=== PATIENT | male | born 1960 | race Caucasian/White ===

== ENCOUNTER → 2020-12-27 | Outpatient (CLI) | payer OTHER ==
--- NOTE | 2020-12-27 19:42 | CONS ---
CONSULTATION DATE OF SERVICE: 12/27/2020 This 60-year-old gentleman has been evaluated in Sleep Center for possible obstructive sleep apnea-hypopnea syndrome. HISTORY OF PRESENT ILLNESS/SLEEP-WAKE EVALUATION: Patient's usual sleep schedule on weekdays is from 11 or 12 midnight until 7 or 8 a.m. and on weekends from around 12 midnight until 7 or 9 a.m. Sometimes he has some problems with falling asleep, although no TV in the bedroom. He usually sleeps on the side position. According to his , he snores and has episodes of stopped breathing during sleep. He also wakes up with gasping for air up to 4 times per night and up to one episode of nocturia at night. Positive history of jerking movements during sleep, according to his . No history of hypnagogic hallucinations, sleep paralysis or cataplexy. [place] Sleepiness Scale is 7. He very rarely takes naps, but feel refreshed after a nap. PAST MEDICAL HISTORY: Positive for allergies. PAST SURGICAL HISTORY: None. MEDICATIONS: None. SOCIAL HISTORY: Positive for smoking many years ago; quit about 30 years ago. Alcohol consumption: None. FAMILY HISTORY: Positive for heart problems in his father. REVIEW OF SYSTEMS: No fevers. No double vision. No recent chest pain. No shortness of breath. No abdominal pain. No bleeding episodes. No blood in the urine. No seizure episodes. Awakenings from sleep. Snoring. PHYSICAL EXAMINATION: GENERAL: Pleasant gentleman without distress. VITAL SIGNS: BP 125/82, HR 81, RR 12, height 5 feet 9 inches, weight 210, BMI 31, temperature 97.4, oxygen saturation at room air 97%. HEENT: PERRLA, EOMI, evaluation of oropharynx showed tongue protrudes midline. Extremely low position of soft palate; Mallampati IV. NECK: Supple, no JVD. Thyroid is not palpable. Neck is wide, measuring 17-1/4 inches in circumference. LUNGS: Clear to percussion and to auscultation. Good air exchange. No wheezing or rhonchi. HEART: S1, S2 regular. No murmurs, gallops, or rubs. ABDOMEN: Soft and nontender. Bowel sounds are present. No organomegaly appreciated. EXTREMITIES: No clubbing or cyanosis. MEDICAL INFORMATION SPECIALIST: Awake, alert, and oriented X3. Cranial nerves 2 to 7 intact. There is no fasciculation or atrophy. noted. No focal deficits observed. IMPRESSION: 1. Snoring, witnessed episodes of stopped breathing during sleep, awakenings from sleep gasping for air, extremely low position of soft palate, Mallampati 4, wide neck, 17-1/4 inches in circumference; obstructive sleep apnea-hypopnea syndrome. 2. Objective movements during sleep; possibly periodic limb movements. 3. Allergies. 4. Obesity in mild range; BMI 31. PLAN: 1. Polysomnography for evaluation of patient's breathing during sleep. 2. CPAP/BiPAP titration if sleep study confirms obstructive sleep apnea-hypopnea syndrome. 3. Preferable position during sleep on the side. 4. No driving if patient feels any sleepiness. 5. I will see patient for follow up visit to explain results of testing and following plan. Thank you very much for referring this patient for consultation. Sincerely, Anoop Kaba MD, PhD, FAASM Diplomat of [place] [employer] Sleep Medicine Board of [place] [employer] Copy Coordinator of [facility] [place] MMODL / GENN: [id number] /
== END ==
LOC: SLEEP 14:54
PROVIDERS: ATTEND Internal Medicine
DX: G47.33 Obstructive sleep apnea (adult) (pediatric) (principal); E66.9 Obesity, unspecified; Z68.31 Body mass index [BMI] 31.0-31.9, adult; T78.40XA Allergy, unspecified, initial encounter; Z87.891 Personal history of nicotine dependence
CPT/HCPCS: 99211

== ENCOUNTER → 2021-01-01 | Outpatient (CLI) | payer OTHER ==
--- NOTE | 2021-01-02 10:45 | ECHOF ---
Referral Reason:DYSPNEA MEASUREMENTS -------- HEIGHT: 175.3 cm WEIGHT: 93.0 kg BP: RVIDd: 3.3 cm (< 3.3) IVSd: 1.2 cm (0.6 - 1.1) LVIDd: 4.6 cm (3.9 - 5.3) LVPWd: 1.0 cm (0.6 - 1.1) IVSs: 1.5 cm LVIDs: 3.3 cm LVPWs: 1.5 cm LA Diam: 3.8 cm (2.7 - 3.8) LAESV Index (A-L): 20.36 ml/m Ao Diam: 3.5 cm (2.0 - 3.7) AV Cusp: 2.5 cm (1.5 - 2.6) MV EXCURSION: 16.312 mm (> 18.000) MV EF SLOPE: 55 mm/s (70 - 150) EPSS: 0.6 cm MV E Luis Miguel: 0.49 m/s MV DecT: 197 ms MV A Luis Miguel: 0.58 m/s MV E/A Ratio: 0.85 RAP: 5.00 mmHg RVSP: 17.01 mmHg FINDINGS -------- Sinus rhythm. This was a technically adequate study. The left ventricular size is normal. There is mild concentric left ventricular hypertrophy. Overa ll left ventricular systolic function is normal with, an EF between 55 - 60 %. The diastolic fillin g pattern is normal for the age of the patient 7.41. The right ventricle is normal in size. Normal LA size by volume 22+/-6 ml/m2. The right atrial size is normal. The aortic valve is trileaflet, and appears structurally normal. No aortic stenosis or regurgitation. The mitral valve is normal. Mild mitral regurgitation is present. The tricuspid valve appears structurally normal. Mild tricuspid regurgitation present. Right vent ricular systolic pressure is normal at < 35 mmHg. Trace/mild (physiologic) pulmonic regurgitation. The aortic root size is normal. There is no pericardial effusion. CONCLUSIONS -------- 1. There is mild concentric left ventricular hypertrophy. 2. Overall left ventricular systolic function is normal with, an EF between 55 - 60 %. 3. Normal LA size by volume 22+/-6 ml/m2. 4. The aortic valve is trileaflet, and appears structurally normal. No aortic stenosis or regurgitati on. 5. Mild mitral regurgitation is present. 6. Mild tricuspid regurgitation present. 7. Trace/mild (physiologic) pulmonic regurgitation. 8. There is no pericardial effusion. BINDER CUTTER: Bharati Dunne RDCS
== END ==
LOC: RADECHMAIN 13:16
PROVIDERS: ATTEND Family Medicine
DX: I08.8 Other rheumatic multiple valve diseases (principal)
CPT/HCPCS: 93306

== ENCOUNTER → 2021-01-01 | Outpatient (CLI) | payer OTHER ==
--- NOTE | 2021-01-01 15:40 | XR ---
EXAMINATION TYPE: XR chest 2V DATE OF EXAM: 01/01/2021 COMPARISON: NONE HISTORY: Shortness of breath TECHNIQUE: Frontal and lateral views of the chest are obtained. FINDINGS: There is no focal air space opacity, pleural effusion, or pneumothorax seen. The cardiac silhouette size is within normal limits. The osseous structures are intact. IMPRESSION: No acute cardiopulmonary process.
== END | disposition home or self-care (01) ==
LOC: RADXRMAIN 13:42
PROVIDERS: ATTEND Family Medicine
DX: R06.02 Shortness of breath (principal)
CPT/HCPCS: 71046

== ENCOUNTER → 2021-07-26 | Outpatient (CLI) | payer OTHER ==
--- NOTE | 2021-07-26 13:07 | SFUN ---
SLEEP CENTER FOLLOW UP NOTE DATE OF SERVICE: 07/26/2021 61-year-old gentleman has been followed in Sleep Center for treatment of obstructive and central sleep apnea-hypopnea syndrome. Recently the patient had a polysomnogram and CPAP/BiPAP titration. I discussed results of sleep studies with patient in detail. Today is his first visit after he was started on treatment with CPAP. With CPAP, he sleeps better and feels better in the morning after awakenings, but he still has some awakenings from sleep. I checked his CPAP unit, it is in automatic regimen. Range of the pressure 7-15, usage is 100% of nights and 60% of nights more than 4 hours. Average pressure 13.1 cm of water. Average apnea-hypopnea index 15.9, which includes 8.0 central events. Average usage of CPAP 5 hours per night. [place] Sleepiness Scale today 6. MEDICATIONS: None. PHYSICAL EXAMINATION: GENERAL: Patient in no distress. BP 136/89, HR 73, RR 16, weight 221.8, temperature 97.2, oxygen saturation at room air 99%. Oropharynx: Extremely low position of soft palate, Mallampati 4. NECK: Supple, no JVD. Thyroid is not palpable. LUNGS: Clear to percussion and to auscultation. Good air exchange. No wheezing or rhonchi. HEART: S1, S2 regular. No murmurs, gallops, or rubs. ABDOMEN: Soft and nontender. Bowel sounds are present. No organomegaly appreciated. EXTREMITIES: No clubbing or cyanosis. AUDITOR/QUALITY: Awake, alert, and oriented X3. Cranial nerves 2 to 7 intact. There is no fasciculation or atrophy. noted. No focal deficits observed. IMPRESSION: 1. Moderate mostly central sleep apnea-hypopnea syndrome with apnea-hypopnea index 25.3. The patient demonstrated borderline compliance with CPAP, respiration improved but not normalized. Presently it is 15.9 times per hour and that includes 8.0 central events per hour. 2. Allergy. 3. Obesity. 4. Severe periodic limb movement 73.3 per hour with 22 microarousals per hour. PLAN: 1. Titration with BiPAP ST mode unit, if necessary auto Servo ventilator. 2. Please check iron profile, including ferritin level. Low level of iron may increase risk for periodic limb movements. 3. Start patient on Mirapex 0.125 mg 1-2 tablets at bedtime to prevent periodic limb movements. 4. No driving if feeling sleepiness. Thank you very much for allowing me to participate in management of your patient. Sincerely, Anoop Kaba MD, PhD, FAASM Diplomat of [place] [employer] Sleep Medicine Board of [place] [employer] Glass Embosser of [facility] [place] MMODL / GENN: [id number] /
== END ==
LOC: SLEEP 11:00
PROVIDERS: ATTEND Internal Medicine
DX: G47.31 Primary central sleep apnea (principal); T78.40XA Allergy, unspecified, initial encounter; E66.9 Obesity, unspecified; G47.61 Periodic limb movement disorder; Z99.89 Dependence on other enabling machines and devices

== ENCOUNTER → 2022-02-07 | Outpatient (CLI) | payer OTHER ==
--- NOTE | 2022-02-07 14:53 | P.PN ---
Subjective DATE: 02/07/2022 FOLLOW UP VISIT. Patient with obstructive sleep apnea hypopnea syndrome and periodic limb movements return to sleep center for follow-up visit. Information from previous visit have been reviewed. Patient is using his ASV equipment most of the nights of the nasal pillow mask and full face mask. He has claustrophobic reaction on full face mask, but if she is able to use full face mask she sleeps better and he is numbers from his machine is better to. [place] sleepiness scale is 7, which is normal. Patient sleeps better with treatment for periodic limb movements. I checked information from ASV unit. ASV unit pressure expiratory pressure in the range between 7 and 10, pressure support in the range from 6-12 cm H2O. Usage is 73 % of nights, average 5.8 hours per night. Leak is 46.1 l/m, which is in increased range. Apnea Hypopnea Index is increased to 9.4, most probably secondary to significant leak. With usage of full face mask when leak is less apnea-hypopnea index is also less according to patient. MEDICATIONS: None During physical exam: GENERAL: A pleasant patient without any distress. VITAL SIGNS: BP 140/86, HR 80, RR 16, weight 215, temperature 98.3, oxygen saturation at room air 98 % . HEENT: PERRLA, EOMI.low position of soft palate, Mallapati 4 . NECK: Supple. No JVD. LUNGS: Clear to percussion and to auscultation. Good air exchange. No wheezing or rhonchi. HEART: S1, S2 regular. ABDOMEN: Soft and nontender. Slightly obese EXTREMITIES: No clubbing or cyanosis. JAVA TECH LEAD: Awake, alert, and oriented x3. No focal deficit. Impressions: 1. Central and obstructive sleep apnea-hypopnea syndrome. Patient demonstrated borderline compliance with treatment, benefiting from treatment. Patient has some claustrophobic reaction on full face mask, but with full face mask respiration improved better then with the nasal pillows. Significant leak with nasal pillows. 2. Obesity body mass and is 31.7. 3. ALLERGY. 4. Severe periodic limb movements. Patient feels improvements on treatment with Mirapex. Plan: 1. Continue using ASV equipment every night for the whole night. Prescription for chinstrap. 2. I teach patient how to proceed with desensitization procedure for usage of full face mask to avoid claustrophobic reaction. 3. ASV unit should stay lower then position of the head. 4. Advised patient to remove all remaining water from humidifier canister daily and make it dry after each usage. Refill canister with fresh distilled water before each usage. 5. Sleep hygiene with regular time in bed for at least 8 hours. 6. Precautions related to driving. No driving if feel any sleepiness. 7. I will maintain prescription for ASV supplies including mask, tube, filters. 8. Follow up visit in 6 months or earlier if patient has any problems. 9. Watching and losing weight. 10. Continue Mirapex 0.125 mg 1-2 tablets at bedtime. Thank you very much for allowing me to participate in the management of your patient. Anoop Kaba MD, PhD, FAASM. Diplomat of [place] [employer], Sleep Medicine Board by [place] [employer] Brewer Helper of [facility] [place]
== END ==
LOC: SLEEP 14:14
PROVIDERS: ATTEND Internal Medicine
DX: G47.33 Obstructive sleep apnea (adult) (pediatric) (principal); E66.9 Obesity, unspecified; Z68.31 Body mass index [BMI] 31.0-31.9, adult; G47.61 Periodic limb movement disorder
CPT/HCPCS: 99212

== ENCOUNTER 2022-10-02 10:50 | Inpatient (IN) | payer OTHER ==
[2022-10-02] MEDS ORDERED: IV FLUID CONTINUATION 400 ML IV ONE (11:20)
[2022-10-02] MEDS ORDERED: NITROGLYCERIN SL TABS 0.4 MG TAB SUBLINGUAL ONE ×2 (12:38→12:40)
[2022-10-02] MEDS ORDERED: NITROGLYCERIN D5W PMX IV ONE (16:14)
[2022-10-02] MEDS ORDERED: [UNRECOGNIZED DRUG - OTHER] IV ONE (16:14)
[2022-10-02] MEDS ORDERED: ONDANSETRON 4 MG/2 ML VIAL ONE (16:55)
[2022-10-02] MEDS ORDERED: ONDANSETRON 4 MG/2 ML VIAL IVP ONE (17:00)
[2022-10-02] MEDS ORDERED: LIDOCAINE 1% INJ 10MG/ML (5 ML VIAL-PF) SQ ONE (18:43)
[2022-10-02] MEDS ORDERED: MIDAZOLAM 2 MG/2 ML VIAL IV ONE (18:46)
[2022-10-02] MEDS ORDERED: LIDOCAINE 1% INJ 10MG/ML (20 ML MDV) SQ ONE (18:50)
[2022-10-02] MEDS ORDERED: HEPARIN SODIUM 1,000 UN/ML (10ML VL) IV PRN (18:55)
[2022-10-02] MEDS ORDERED: HEPARIN SODIUM 1,000 UN/ML (10ML VL) ONE (18:58)
[2022-10-02] MEDS ORDERED: HEPARIN SOD,PORK IN 0.45% NACL 25,000 UNIT in 0.45% NACL 1 250ML.BAG IV SCH (19:00)
[2022-10-02] MEDS ORDERED: HEPARIN SODIUM 1,000 UN/ML (10ML VL) IV ONE (19:01)
[2022-10-02] MEDS ORDERED: PRASUGREL 10 MG TAB ONE (19:13)
[2022-10-02] MEDS ORDERED: PRASUGREL 10 MG TAB PO ONE (19:15)
[2022-10-02] MEDS ORDERED: IOPAMIDOL-370 100ML BTL INJ ONE (19:21)
[2022-10-02] MEDS ORDERED: RX INFO: IV CONTRAST WAS GIVEN 1 EACH MISC MISCELLANE PRN (19:23)
[2022-10-02] MEDS ORDERED: ATROPINE SULFATE 0.1 MG/ML 10ML SYRINGE IV PRN (19:23)
[2022-10-02] MEDS ORDERED: MAG HYDROX/AL HYDROX/SIMETH 30 ML CUP PO PRN (19:23)
[2022-10-02] MEDS ORDERED: ZOLPIDEM 5 MG TAB PO PRN (19:23)
[2022-10-02] MEDS ORDERED: NITROGLYCERIN SL TABS 0.4 MG TAB SUBLINGUAL PRN (19:23)
[2022-10-02] MEDS ORDERED: SODIUM CHLORIDE 0.9% 1,000 ML in EMPTY BAG 1 BAG IV SCH (19:30)
[2022-10-02] MEDS ORDERED: ATORVASTATIN 80 MG TAB PO SCH (21:00)
--- NOTE | 2022-10-02 21:24 | P.PCN ---
Date of Procedure: 10/02/22 Operative Findings: Percutaneous coronary intervention Performing physician Elfego Ortiz MD Procedure performed 1. Successful stenting of the proximal LAD using a 4.5 x 15 mm Xience DANIEL with an excellent angiographic results and with adjunctive use of lithotripsy balloon and intravascular imaging 2. Right radial artery angiogram 3. Ultrasound-guided access of the right common femoral artery and right common femoral artery angiogram Indication This is a 8-year-old gentleman with hypertension and dyslipidemia and significant family history of cardiovascular disease who presented to [facility] with chest discomfort concerning for angina. In the light of the heart catheterization was advised Approach Right common femoral artery Complications None Level of sedation Moderate with sedation at length of 35 minutes Procedure description After obtaining an informed consent the patient was brought to the cardiac Grape Picker. Initially I exchanged my right radial sheath using a 018 wire into a new right radial sheath. Attempting a bleeding this sheath was unsuccessful. I did a right radial angiogram which showed what seems to be thrombus just proximal to the sheath. At that point the sheath was pulled out and a place a TR band. For that reason I decided to abort the right radial procedure and go from the groin. That point the right common femoral artery was cannulated using micropuncture technique, the micropuncture wire passed easily then I placed a 6 Uzbek sheath. After that I did start anticoagulation using heparin with continuous ACT monitoring. Subsequently I did engage the left main using JL4 guiding catheter. I did wire the LAD using a run through wire. After that intravascular ultrasound was performed and showed that the RCA by the bifurcation of the diagonal appeared to be calcified with an arch of calcium about to 70. At that point I decided to go ahead and do lithotripsy balloon. The diameter of the LAD was about 4.5 mm. I did inflate a 4.0 x 12 mm lithotripsy balloon or the balloon was positioned under fluoroscopy guidance and inflated under its nominal pressure. Subsequently I deployed 4.5 x 15 mm stent for the stent was positioned under fluoroscopy guidance and deployed under fluoroscopy guidance. Following angiogram showed good angiographic results and subsequent intravascular ultrasound imaging showed that the stent was well expanded. The procedure was completed was no complication. By the end I did selective right c ommon femoral artery angiogram. Postprocedure management Dual antiplatelet therapy Aggressive cholesterol control Risk factors modification Follow-up with the patient
[2022-10-02] MEDS ORDERED: METOCLOPRAMIDE 5 MG/ML 2 ML VIAL IVP STA (22:14)
[2022-10-02] MEDS: METOPROLOL TARTRATE 25 MG TAB PO SCH (22:31)
--- NOTE | 2022-10-03 00:48 | P.HPIM ---
History of Present Illness H&P Date: 10/02/22 The patient is a 62-year-old male with a PMH of hypertension, hyperlipidemia, and obstructive sleep apnea who initially presented to [facility] earlier today with complaints of chest pain and shortness of breath. The patient reported that he has been experiencing exertional dyspnea with diaphoresis and nausea over the past 2-3 weeks. He also reported occasional exertional chest tightness, 2-3 out of 10 on maximal intensity, nonradiating, substernal, alleviated by rest. He denied experiencing dizziness or palpitations. Denied fever, chills, cough. The patient had undergone EKG which revealed dynamic changes. He was transferred to [facility] where he taken to the cardiac label folder where cardiac catheterization was performed with stenting of the proximal LAD. At time of interview, the patient reports that he continues to have mild substernal chest tightness, nonradiating at a 1 out of 10. He also reported ongoing nausea, now improved after having received Reglan. Laboratory evaluation from [facility] was reviewed with sodium 137, potassium 3.1, CO2 17, BUN 10, creatinine 1.2, glucose 184, AST 47, ALT 76, lactic acid 6.8, WBC count 4.9, hemoglobin 17.5, platelets 278, troponin I 12 (within normal limits), proBNP 108, and INR 1.08. ED documentation reviewed and case discussed with ED provider. Review of systems: Pertinent positives and negatives as discussed in HPI, a complete review of systems was performed and all other systems are negative. Physical examination: Vital signs reviewed General: non toxic, no distress, appears at stated age, obese Derm: no unusual rashes/lesions, warm Head: atraumatic, normocephalic, symmetric Eyes: EOMI, no lid lag, anicteric sclera, pupils equal round reactive to light ENT: Nose and ears atraumatic Neck: No cervical lymphadenopathy, trachea midline, supple Mouth: no lip lesion, mucus membranes moist Cardiovascular: S1S2 reg, no murmur, positive dorsalis pedis pulse bilateral, no edema Lungs: CTA bilateral, no rhonchi, no rales, no accessory muscle use Abdominal: soft, nontender to palpation, no guarding, right femoral pressing in place without obvious bruising or bleeding Ext: muscle strength 5 out of 5 in all 4 extremities grossly, no gross muscle atrophy, no contractures, right radial sheath in place Neuro: CN II-XI grossly intact, no gross focal neuro deficits Psych: Alert, oriented, appropriate affect Assessment: ST elevation IL status post stenting to the LAD Lactic acidosis Hypokalemia Chronic conditions: Hypertension, hyperlipidemia Imaging: None performed Data Review: Laboratory evaluation from [facility] was reviewed with sodium 137, potassium 3.1, CO2 17, BUN 10, creatinine 1.2, glucose 184, AST 47, ALT 76, lactic acid 6.8, WBC count 4.9, hemoglobin 17.5, platelets 278, troponin I 12 (within normal limits), proBNP 108, and INR 1.08. Plan: Cardiology following Continue with aspirin and Effient Continue with Lopressor 25 mg by mouth twice a day and Lipitor 80 mg by mouth daily at bedtime Cardiac monitoring Repeat lactic acid and monitor for resolution Repeat potassium levels Continue remaining home medications DVT prophylaxis: Heparin subq The patient is admitted with an anticipated greater than 2 midnight stay for evaluation of STEMI CODE STATUS: Full Code Discussed with: Patient Anticipated discharge place: Home Past Medical History Past Medical History: No Reported History History of Any Multi-Drug Resistant Organisms: None Reported Past Surgical History: No Surgical Hx Reported Smoking Status: Never smoker - Past Family History Father Family Medical History: Chest Pain / Angina Medications and Allergies Home Medications Medication Instructions Recorded Confirmed Type Cetirizine HCl [Zyrtec] 10 mg PO HS 10/02/22 10/02/22 History Pramipexole [Mirapex] 0.25 mg PO HS 10/02/22 10/02/22 History Allergies Allergy/AdvReac Type Severity Reaction Status Date / Time No Known Allergies Allergy Verified 10/02/22 17:26 Physical Exam Vitals: Vital Signs Temp Pulse Pulse Resp BP Pulse Ox 10/02/22 23:08 98.4 F 70 18 141/94 96 10/02/22 22:08 60 18 137/86 97 10/02/22 20:38 55 L 20 155/86 98 10/02/22 20:08 98.0 F 20 151/89 97 10/02/22 17:52 98.3 F 68 22 146/92 98 10/02/22 17:00 75 16 156/83 97 10/02/22 16:00 78 16 150/83 97 10/02/22 15:00 73 16 147/95 95 10/02/22 14:00 67 16 144/82 98 10/02/22 13:00 72 16 151/88 96 10/02/22 12:30 65 16 161/103 97 10/02/22 12:00 73 16 140/92 98 10/02/22 11:30 98.8 F 70 16 142/90 98 Intake and Output 10/02/22 10/02/22 10/03/22 14:59 22:59 06:59 Intake Total 170 Balance 170 Intake: IV 170 Other: # Voids 1 Weight 92.533 kg 92.533 kg Thrombosis Risk Factor Assmnt - Choose All That Apply Any of the Below Risk Factors Present?: Yes Each Factor Represents 1 point: Age 41-60 years Other Risk Factors: No Thrombosis Risk Factor Assessment Total Risk Factor Score: 1 Thrombosis Risk Factor Assessment Level: Low Risk
[2022-10-03 01:50] LABS: African American GFR (CKD) >90 (>60 ml/min/1.73 sqM); Anion Gap 11 mmol/L; Blood Urea Nitrogen 9 mg/dL (9-20); Calcium 8.2 mg/dL (8.4-10.2); Carbon Dioxide 21 mmol/L (22-30); Chloride 103 mmol/L (98-107); Glucose 120 mg/dL (74-99); Non-African American GFR(CKD) >90 (>60 ml/min/1.73 sqM); Potassium 3.3 mmol/L (3.5-5.1); Sodium 135 mmol/L (137-145)
[2022-10-03] MEDS ORDERED: Potassium Replacement Protocol 1 EACH MISC MISCELLANE PRN (02:21)
[2022-10-03] MEDS: POTASSIUM CHLORIDE ER 20 MEQ TAB.ER PO SCH (02:30)
[2022-10-03] MEDS ORDERED: POTASSIUM CHLORIDE ER 20 MEQ TAB.ER PO STA (08:31)
[2022-10-03] MEDS ORDERED: ASPIRIN 81 MG PO SCH (09:00)
[2022-10-03] MEDS ORDERED: PRASUGREL 10 MG TAB PO SCH (09:00)
[2022-10-03] MEDS ORDERED: LOSARTAN 50 MG TAB PO SCH (09:00)
[2022-10-03] MEDS: METOPROLOL TARTRATE 25 MG TAB PO SCH (09:07)
[2022-10-03] MEDS ORDERED: ONDANSETRON 4 MG/2 ML VIAL IVP PRN (09:28)
--- NOTE | 2022-10-03 10:38 | P.PN ---
Subjective Progress Note Date: 10/03/22 History of present illness: This is a 62 year old male with past medical history of hypertension, dyslipid emia and family history of cardiovascular disease. He presented to [facility] with chest discomfort concerning for angina. Cardiac catheterization was performed and he subsequently underwent stenting of the proximal LAD. Patient is to have a staged stenting of the circumflex and RCA at a later time. Patient denies having any chest pain or shortness of breath at this time. Heart rate is in the 60s, potassium is 3 and was replaced. He states his abdomen is a little upset but no nausea this morning. Physical examination: Gen: This is a 62-year-old male resting in bed and appears to be comfortable. No acute distress. VS: reviewed HEENT: Head is atraumatic, normocephalic. Pupils equal, round. Sclerae is anicteric. NECK: Supple. No JVD. . LUNGS: Clear to auscultation. No wheezes or rhonchi. No intercostal retractions. HEART: Regular rate and rhythm. No murmur. ABDOMEN: Soft No tenderness. EXTREMITIES: No pedal edema. No calf tenderness. NEUROLOGICAL: Patient is awake, alert and oriented x3. Assessment: Unstable angina Coronary artery disease status post stent of the LAD Hypertension Dyslipidemia Plan: Patient is cleared for discharge from cardiology and prescriptions have been sent for his new medications Patient will have follow-up with Dr. Ortiz in the office in one week. Plan is for stage stenting of the circumflex and RCA at a later time. Nurse practitioner note has been reviewed, I agree with documented findings and plan of care. Patient was seen and examined. Objective - Vital Signs Vital signs: Vital Signs Temp 98.9 F 10/03/22 00:00 Pulse 68 10/03/22 04:00 Resp 20 10/03/22 04:00 BP 140/90 10/03/22 04:00 Pulse Ox 97 10/03/22 08:28 FiO2 Intake & Output 10/02/22 10/03/22 10/03/22 18:59 06:59 18:59 Intake Total 170 1230 180 Output Total 300 Balance 170 930 180 Weight 92.533 kg 95 kg Intake: IV 170 Intake, IV Titration 750 Amount Sodium Chloride 0.9% 1, 750 000 ml In Empty Bag 1 bag @ 75 mls/hr IV .[id number] HAYLIE Rx#:[id number] Oral 480 180 Output: Urine 300 Other: Voiding Method Urinal # Voids 1 - Labs CBC & Chem 7: 10/03/22 00:59 Labs: Abnormal Lab Results - Last 24 Hours (Table) 10/03/22 Range/Units 00:59 Sodium 135 L (137-145) mmol/L Potassium 3.3 L (3.5-5.1) mmol/L Carbon Dioxide 21 L (22-30) mmol/L Glucose 120 H (74-99) mg/dL Calcium 8.2 L (8.4-10.2) mg/dL
--- NOTE | 2022-10-03 11:44 | P.DS ---
Providers Date of admission: 10/02/22 11:28 Expected date of discharge: 10/03/22 Attending physician: Doreen Vanegas DO Consults: 10/02/22 19:23 Consult Physician Routine Consulting Provider: [facility] Consult Reason/Comments: Post Interventional Patient Do you want consulting provider notified?: Already Contacted Primary care physician: Zak Carter MD Hospital Course: Discharge Diagnosis: Unstable angina Coronary artery disease status post LAD stent Hypertension Dyslipidemia Hospital Course: 62-year-old male with a PMH of hypertension, hyperlipidemia, and obstructive sleep apnea who initially presented to [facility] earlier today with complaints of chest pain and shortness of breath. The patient reported that he has been experiencing exertional dyspnea with diaphoresis and nausea over the past 2-3 weeks. He also reported occasional exertional chest tightness, 2-3 out of 10 on maximal intensity, nonradiating, substernal, alleviated by rest. He denied experiencing dizziness or palpitations. Denied fever, chills, cough. The patient had undergone EKG which revealed dynamic changes. He was transferred to [facility] where he taken to the cardiac lab director where cardiac catheterization was performed with stenting of the proximal LAD. Laboratory evaluation from [facility] was reviewed with sodium 137, potassium 3.1, CO2 17, BUN 10, creatinine 1.2, glucose 184, AST 47, ALT 76, lactic acid 6.8, WBC count 4.9, hemoglobin 17.5, platelets 278, troponin I 12 (within normal limits), proBNP 108, and INR 1.08. Patient is discharged home with follow-up with cardiology in 1 week, plan for staged PCI of left circumflex and RCA later time. Chest pain-free at the time of discharge. Patient seen and examined at bedside. Vital signs reviewed and stable. General: nontoxic, no distress, appears at stated age Derm: warm, dry Head: atraumatic, normocephalic, symmetric Eyes: EOMI, no lid lag, anicteric sclera Mouth: no lip lesion, mucus membranes moist Cardiovascular: S1S2 reg, no murmur Lungs: CTA bilateral, no rhonchi, no rales , no accessory muscle use Abdominal: soft, nontender to palpation, no guarding, no appreciable organomegaly Ext: no gross muscle atrophy, no edema, no contractures Neuro: CN II-XI grossly intact, no focal neuro deficits Psych: Alert, oriented, appropriate affect A total of 33 minutes of time were spent preparing this complex discharge summary. Patient was discharged on 10/03/22 at 11:40. Patient Condition at Discharge: Stable Plan - Discharge Summary Discharge Rx Participant: No New Discharge Prescriptions: New Losartan [Cozaar] 50 mg PO DAILY #90 tab Prasugrel [Effient] 10 mg PO DAILY #90 tab Nitroglycerin Sl Tabs [Nitrostat] 0.4 mg SUBLINGUAL Q5M PRN #25 tab PRN Reason: Chest Pain Aspirin 81 mg PO DAILY tab Atorvastatin [Lipitor] 80 mg PO HS #90 tab Metoprolol Tartrate [Lopressor] 25 mg PO BID #180 tab Continue Pramipexole [Mirapex] 0.25 mg PO HS Cetirizine HCl [Zyrtec] 10 mg PO HS Discharge Medication List Cetirizine HCl [Zyrtec] 10 mg PO HS 10/02/22 [History] Pramipexole [Mirapex] 0.25 mg PO HS 10/02/22 [History] Aspirin 81 mg PO DAILY tab 10/03/22 [Rx] Atorvastatin [Lipitor] 80 mg PO HS #90 tab 10/03/22 [Rx] Losartan [Cozaar] 50 mg PO DAILY #90 tab 10/03/22 [Rx] Metoprolol Tartrate [Lopressor] 25 mg PO BID #180 tab 10/03/22 [Rx] Nitroglycerin Sl Tabs [Nitrostat] 0.4 mg SUBLINGUAL Q5M PRN #25 tab 10/03/22 [Rx] Prasugrel [Effient] 10 mg PO DAILY #90 tab 10/03/22 [Rx] Follow up Appointment(s)/Referral(s): Elfego Ortiz MD [STAFF PHYSICIAN] - 1 Week (THE OFFICE WILL CALL YOU WITH AN APPOINTMENT DATE AND TIME) Patient Instructions/Handouts: Moderate Sedation (GEN), After Radial Heart Catheterization (GEN) Activity/Diet/Wound Care/Special Instructions: *NO LIFTING, PUSHING, OR PULLING ANYTHING OVER 5 POUNDS FOR 5 DAYS *NO DRIVING FOR 3 DAYS *YOU CAN REMOVE YOUR DRESSING TOMORROW AND SHOWER AT THAT TIME BUT DO NOT SUBMERSE YOUR PUNCTURE SITE IN WATER FOR A FEW DAYS TO PREVENT INFECTION - SO NO TUB BATHS, POOLS, HOT TUBS, DISHES...ETC *ANY SIGNS OF BLEEDING (HARDNESS, SWELLING, OR EXCESSIVE BRUISING) HOLD DIRECT PRESSURE ON YOUR PUNCTURE SITE AND COME TO THE NEAREST EMERGENCY ROOM TO GET YOUR PUNCTURE SITE LOOKED AT - DO NOT DRIVE YOURSELF! EITHER CALL EMS OR HAVE SOMEONE DRIVE YOU! Discharge Disposition: HOME SELF-CARE
[2022-10-03 12:09] VITALS: BP 170/99; PULSE 65; RESP 18; TEMP 97.7
[2022-10-03 12:19] VITALS: BMI 30.9
--- NOTE | 2022-10-03 16:11 | CA ---
Transthoracic Echo Report Name: Lenard Levine Age: 62 Gender: M : 1960 Exam Date: 10/03/2022 09:19 Exam Location: [facility] Ht (in): 69 Wt (lb): 209 Ordering Physician: Parminder Ayon MD Attending/Referring Phys: Repair Technician Marisol Solano RDCS Procedure CPT: Indications: CO Cardiac Hx: Hx of stent Technical Quality: Fair Contrast 1: Total Dose (mL): Contrast 2: Total Dose (mL): MEASUREMENTS (Male / Female) Normal Values 2D ECHO LV Diastolic Diameter PLAX 4.8 cm 4.2 - 5.9 / 3.9 - 5.3 cm LV Systolic Diameter PLAX 3.6 cm IVS Diastolic Thickness 1.5 cm 0.6 - 1.0 / 0.6 - 0.9 cm LVPW Diastolic Thickness 1.2 cm 0.6 - 1.0 / 0.6 - 0.9 cm LV Relative Wall Thickness 0.6 RV Internal Dim ED PLAX 3.2 cm LA Systolic Diameter LX 4.0 cm 3.0 - 4.0 / 2.7 - 3.8 cm LV Diastolic Volume MOD 4C 140.9 cm??? LV Systolic Volume MOD 4C 58.0 cm??? LV Ejection Fraction MOD 4C 58.8 % LV Cardiac Index MOD 4C 2438.9 cm???/min???m??? LV Diastolic Length 4C 9.3 cm LV Systolic Length 4C 8.0 cm LV Diastolic Volume MOD 2C 140.9 cm??? LV Systolic Volume MOD 2C 58.0 cm??? LV Ejection Fraction MOD 2C 58.9 % LV Cardiac Index MOD 2C 2440.9 cm???/min???m??? LV Diastolic Length 2C 9.1 cm LV Systolic Length 2C 7.1 cm LA Volume 45.6 cm??? 18 - 58 / 22 - 52 cm??? M-MODE Aortic Root Diameter MM 3.3 cm AV Cusp Separation MM 2.4 cm DOPPLER AV Peak Velocity 143.3 cm/s AV Peak Gradient 8.2 mmHg MV Area PHT 4.8 cm??? Mitral E Point Velocity 87.7 cm/s Mitral A Point Velocity 76.3 cm/s Mitral E to A Ratio 1.1 MV Deceleration Time 157.9 ms MV E' Velocity 9.4 cm/s Mitral E to MV E' Ratio 9.3 FINDINGS Left Ventricle Left ventricular ejection fraction is estimated at 55-60 %. Left ventricular cavity size normal. Moderately increased septal wall thickness. Right Ventricle Normal right ventricular size and function. Unable to estimate the right ventricular systolic pressure. Right Atrium Normal right atrial size. Left Atrium Normal left atrial size. Mitral Valve Mitral valve thickened. Mild mitral annular calcification. Mild mitral regurgitation. Aortic Valve Trileaflet aortic valve. No aortic valve stenosis or regurgitation. Tricuspid Valve Structurally normal tricuspid valve. No tricuspid regurgitation. Pulmonic Valve Structurally normal pulmonic valve. Mild pulmonic regurgitation. Pericardium Normal pericardium. No pericardial effusion. Aorta Normal size aortic root and proximal ascending aorta. CONCLUSIONS Left ventricular ejection fraction 55-60% Mild mitral regurgitation Mild mitral calcification No pericardial effusion Previewed by: Dr. Negrito Clark DO (Electronically Signed) Final Date: 03 October 2022 16:10
== END 2022-10-03 14:57 | disposition home or self-care (01) | DRG 175 ==
LOC: 3SCARD 11:28
PROVIDERS: ADMIT Internal Medicine; ATTEND Internal Medicine
PROC: 02F03ZZ Fragmentation in Coronary Artery, One Artery, Percutaneous Approach (ICD-10-PCS; principal; 2022-10-02 12:30)
PROC: 027034Z Dilation of Coronary Artery, One Artery with Drug-eluting Intraluminal Device, Percutaneous Approach (ICD-10-PCS; principal; 2022-10-02 12:30)
PROC: B41F1ZZ Fluoroscopy of Right Lower Extremity Arteries using Low Osmolar Contrast (ICD-10-PCS; principal; 2022-10-02 12:30)
PROC: B31H1ZZ Fluoroscopy of Right Upper Extremity Arteries using Low Osmolar Contrast (ICD-10-PCS; principal; 2022-10-02 12:30)
PROC: B240ZZ3 Ultrasonography of Single Coronary Artery, Intravascular (ICD-10-PCS; principal; 2022-10-02 12:30)
DX: I25.10 Atherosclerotic heart disease of native coronary artery without angina pectoris (principal); E87.20 Acidosis, unspecified; I25.110 Atherosclerotic heart disease of native coronary artery with unstable angina pectoris; I10 Essential (primary) hypertension; G25.81 Restless legs syndrome; E78.5 Hyperlipidemia, unspecified; Z28.310 Unvaccinated for COVID-19; I25.84 Coronary atherosclerosis due to calcified coronary lesion; G47.33 Obstructive sleep apnea (adult) (pediatric); E87.6 Hypokalemia; Z79.899 Other long term (current) drug therapy; Z82.49 Family history of ischemic heart disease and other diseases of the circulatory system; Z96.0 Presence of urogenital implants; Z87.891 Personal history of nicotine dependence
CPT/HCPCS: 0715T; 80048; 83605; 92928; 92978; 93306; 94760

== ENCOUNTER 2022-10-04 14:57 | Observation (INO) | payer OTHER ==
[2022-10-04] MEDS ORDERED: HYDROmorphone 0.5 MG/0.5 ML SYRINGE IVP STA (15:23)
[2022-10-04] MEDS ORDERED: NITROGLYCERIN-D5W PMX 50 MG in DEXTROSE/WATER 1 250ML.BAG IV ONE (15:23)
[2022-10-04 15:41] LABS: Basophils % (A) 0 %; Eosinophils # (A) 0.2 k/uL (0-0.7); Eosinophils % (A) 2 %; HCT 45.3 % (39.0-53.0); HGB 16.4 gm/dL (13.0-17.5); Lymphocytes # (A) 1.7 k/uL (1.0-4.8); Lymphocytes % (A) 18 %; MCH 35.8 pg (25.0-35.0); MCHC 36.1 g/dL (31.0-37.0); MCV 99.1 fL (80.0-100.0); Mean Platelet Volume 8.1; Monocytes # (A) 0.7 k/uL (0-1.0); Monocytes % (A) 8 %; Neutrophils # (A) 6.8 k/uL (1.3-7.7); Neutrophils % (A) 71 %; Platelet Count 218 k/uL (150-450); RBC 4.57 m/uL (4.30-5.90); RDW 13.6 % (11.5-15.5); WBC 9.5 k/uL (3.8-10.6)
[2022-10-04 15:53] LABS: INR 1.1 (<1.2); Prothrombin Time 11.6 sec (9.0-12.0)
--- NOTE | 2022-10-04 15:54 | ED ---
General Adult HPI - General Chief complaint: Chest Pain Stated complaint: Chest Pain Time Seen by Provider: 10/04/22 15:13 Source: patient, RN notes reviewed, old records reviewed Mode of arrival: wheelchair - History of Present Illness Initial comments: 62-year-old male with history of CAD, hypertension, hyperlipidemia and LAD stenting performed yesterday presenting for evaluation of a central chest discomfort. Discomfort has been present for the past one hour at the time my evaluation. Patient taken 3 total nitroglycerin with only minimal relief. Patient states she's been compliant with the medication prescribed which included aspirin and Effient - Related Data Home Medications Medication Instructions Recorded Confirmed Cetirizine HCl [Zyrtec] 10 mg PO HS 10/02/22 10/04/22 Pramipexole [Mirapex] 0.25 mg PO HS 10/02/22 10/04/22 Previous Rx's Medication Instructions Recorded Aspirin 81 mg PO DAILY tab 10/03/22 Atorvastatin [Lipitor] 80 mg PO HS #90 tab 10/03/22 Losartan [Cozaar] 50 mg PO DAILY #90 tab 10/03/22 Metoprolol Tartrate [Lopressor] 25 mg PO BID #180 tab 10/03/22 Nitroglycerin Sl Tabs [Nitrostat] 0.4 mg SUBLINGUAL Q5M PRN #25 tab 10/03/22 Prasugrel [Effient] 10 mg PO DAILY #90 tab 10/03/22 Allergies Allergy/AdvReac Type Severity Reaction Status Date / Time No Known Allergies Allergy Verified 10/04/22 15:23 Review of Systems ROS Statement: Those systems with pertinent positive or pertinent negative responses have been documented in the HPI. ROS Other: All systems not noted in ROS Statement are negative. Past Medical History Past Medical History: No Reported History History of Any Multi-Drug Resistant Organisms: None Reported Past Surgical History: No Surgical Hx Reported Additional Past Surgical History / Comment(s): stent placement Smoking Status: Never smoker Past Alcohol Use History: None Reported Past Drug Use History: None Reported - Past Family History Father Family Medical History: Chest Pain / Angina General Exam General appearance: alert, in no apparent distress Head exam: Present: atraumatic, normocephalic Eye exam: Present: normal appearance, PERRL ENT exam: Present: normal exam Neck exam: Present: normal inspection. Absent: tenderness, meningismus Respiratory exam: Present: normal lung sounds bilaterally. Absent: respiratory distress, wheezes Cardiovascular Exam: Present: regular rate, normal rhythm GI/Abdominal exam: Present: soft. Absent: distended, tenderness, guarding Extremities exam: Present: normal inspection, normal capillary refill Neurological exam: Present: alert, oriented X3, CN II-XII intact. Absent: motor sensory deficit Psychiatric exam: Present: normal affect, normal mood Skin exam: Present: warm, diaphoretic Course Vital Signs 10/04/22 10/04/22 10/04/22 15:12 15:37 15:42 Temperature 98.1 F Pulse Rate 69 65 67 Respiratory 20 18 20 Rate Blood Pressure 149/100 117/62 136/98 O2 Sat by Pulse 97 98 97 Oximetry 10/04/22 10/04/22 15:55 16:09 Temperature Pulse Rate 64 67 Respiratory 18 18 Rate Blood Pressure 139/95 141/99 O2 Sat by Pulse 97 97 Oximetry - Reevaluation(s) Reevaluation #1: 10/04/22 15:50 Patient states symptoms have completely resolved, feeling much better Reevaluation #2: 10/04/22 15:26 Cardiology paged regarding patient presentation. Medical Decision Making - Medical Decision Making Was pt. sent in by a medical professional or institution (, PA, GAS TRANSFER OPERATOR, urgent care, hospital, or custodial...) When possible be specific @ -[No] Did you speak to anyone other than the patient for history (EMS, parent, family, police, friend...)? What history was obtained from this source @ -[No] Did you review nursing and triage notes (agree or disagree)? Why? @ -[I reviewed and agree with nursing and triage notes] Were old charts reviewed (outside hosp., previous admission, EMS record, old EKG, old radiological studies, urgent care reports/EKG's, custodial records)? Report findings @ -[No old charts were reviewed] Differential Diagnosis (chest pain, altered mental status, abdominal pain women, abdominal pain men, vaginal bleeding, weakness, fever, dyspnea, syncope, headache, dizziness, GI bleed, back pain, seizure, CVA, palpatations, mental health, musculoskeletal)? @ -[Differential Chest Pain: Stable Angina, Unstable Angina, STEMI, NSTEMI, in-stent thrombosis, Aortic Dissection, Pneumothorax, Musculoskeletal, Esophageal Spasm GERD, Cholecystitis, Pancreatitis, Zoster, this is not meant to be an all-inclusive list. EKG interpreted by me (3pts min.). @ -Sinus rhythm rate of 64, VT interval 144, QRS duration 88, QTC 408, no ST segment elevation X-rays interpreted by me (1pt min.). @ -[Single view chest obtained negative for acute cardio palmar findings CT interpreted by me (1pt min.). @ -[None done] U/S interpreted by me (1pt. min.). @ -[None done] What testing was considered but not performed or refused? (CT, X-rays, U/S, labs)? Why? @ -[None] What meds were considered but not given or refused? Why? @ -[None] Did you discuss the management of the patient with other professionals (professionals i.e. , PA, GAS TRANSFER OPERATOR, lab, RT, psych nurse, social services coordinator, c++ quant developer, teacher, chief media officer, hospice case manager)? Give summary @ -[Sound physician group Was smoking cessation discussed for >3mins.? @ -[No] Was critical care preformed (if so, how long)? @ -[No] Were there social determinants of health that impacted care today? How? (Homelessness, low income, unemployed, alcoholism, drug addiction, transportation, low edu. Level, literacy, decrease access to med. care, skilled nursing, rehab)? @ -[No] Was there de-escalation of care discussed even if they declined (Discuss DNR or withdrawal of care, Hospice)? DNR status @ -[No] What co-morbidities impacted this encounter? (DM, HTN, Smoking, COPD, CAD, Cancer, CVA, ARF, Chemo, Hep., AIDS, mental health diagnosis, sleep apnea, morbid obesity)? @ -Hypertension, hyperlipidemia, CAD Was patient admitted / discharged? Hospital course, mention meds given and route, prescriptions, significant lab abnormalities, going to OR and other pertinent info. @ -[62-year-old male presenting for evaluation of chest discomfort and pain. Symptoms began just prior to arrival. Patient had LAD stent placed yesterday. He had taken his aspirin and Effient this morning. EKG is normal sinus rhythm without definitive signs of ischemia. Chest x-ray is clear. He has normal CBC, mild hypokalemia which is replaced. His troponin is minimally elevated at 0.07 to this level will need to be trended. He is started on a nitroglycerin infusion. He is chest pain-free on reevaluation in the emergency department. Case discussed with sound physician group who will admit. Undiagnosed new problem with uncertain prognosis? @ -[No] Drug Therapy requiring intensive monitoring for toxicity (Heparin, Nitro, Insulin, Cardizem)? @ -[No] Were any procedures done? @ -[No] Diagnosis/symptom? @ -Chest pain, Acute, or Chronic, or Acute on Chronic? @ -[Acute Uncomplicated (without systemic symptoms) or Complicated (systemic symptoms)? @ -[default] Side effects of treatment? @ -[No] Exacerbation, Progression, or Severe Exacerbation? @ -[No] Poses a threat to life or bodily function? How? (Chest pain, USA, CO, pneumonia, PE, COPD, DKA, ARF, appy, cholecystitis, CVA, Diverticulitis, Homicidal, Suicidal, threat to staff... and all critical care pts) @ -[Yes, chest pain - Lab Data Result diagrams: 10/04/22 15:31 10/04/22 15:31 Lab Results 10/04/22 10/04/22 10/04/22 Range/Units 15:31 15:31 15:31 WBC 9.5 (3.8-10.6) k/uL RBC 4.57 (4.30-5.90) m/uL Hgb 16.4 (13.0-17.5) gm/dL Hct 45.3 (39.0-53.0) % MCV 99.1 (80.0-100.0) fL MCH 35.8 H (25.0-35.0) pg MCHC 36.1 (31.0-37.0) g/dL RDW 13.6 (11.5-15.5) % Plt Count 218 (150-450) k/uL MPV 8.1 Neutrophils % 71 % Lymphocytes % 18 % Monocytes % 8 % Eosinophils % 2 % Basophils % 0 % Neutrophils # 6.8 (1.3-7.7) k/uL Lymphocytes # 1.7 (1.0-4.8) k/uL Monocytes # 0.7 (0-1.0) k/uL Eosinophils # 0.2 (0-0.7) k/uL Basophils # 0.0 (0-0.2) k/uL PT 11.6 (9.0-12.0) sec INR 1.1 (<1.2) APTT 24.0 (22.0-30.0) sec Sodium 135 L (137-145) mmol/L Potassium 3.3 L (3.5-5.1) mmol/L Chloride 99 (98-107) mmol/L Carbon Dioxide 26 (22-30) mmol/L Anion Gap 10 mmol/L BUN 12 (9-20) mg/dL Creatinine 0.94 (0.66-1.25) mg/dL Est GFR (CKD-EPI)AfAm >90 (>60 ml/min/1.73 sqM) Est GFR (CKD-EPI)NonAf 88 (>60 ml/min/1.73 sqM) Glucose 108 H (74-99) mg/dL Calcium 9.1 (8.4-10.2) mg/dL Magnesium 1.9 (1.6-2.3) mg/dL Total Bilirubin 1.9 H (0.2-1.3) mg/dL AST 65 H (17-59) U/L ALT 63 H (4-49) U/L Alkaline Phosphatase 56 (38-126) U/L Troponin I (0.000-0.034) ng/mL Total Protein 6.6 (6.3-8.2) g/dL Albumin 4.2 (3.5-5.0) g/dL 10/04/22 Range/Units 15:31 WBC (3.8-10.6) k/uL RBC (4.30-5.90) m/uL Hgb (13.0-17.5) gm/dL Hct (39.0-53.0) % MCV (80.0-100.0) fL MCH (25.0-35.0) pg MCHC (31.0-37.0) g/dL RDW (11.5-15.5) % Plt Count (150-450) k/uL MPV Neutrophils % % Lymphocytes % % Monocytes % % Eosinophils % % Basophils % % Neutrophils # (1.3-7.7) k/uL Lymphocytes # (1.0-4.8) k/uL Monocytes # (0-1.0) k/uL Eosinophils # (0-0.7) k/uL Basophils # (0-0.2) k/uL PT (9.0-12.0) sec INR (<1.2) APTT (22.0-30.0) sec Sodium (137-145) mmol/L Potassium (3.5-5.1) mmol/L Chloride (98-107) mmol/L Carbon Dioxide (22-30) mmol/L Anion Gap mmol/L BUN (9-20) mg/dL Creatinine (0.66-1.25) mg/dL Est GFR (CKD-EPI)AfAm (>60 ml/min/1.73 sqM) Est GFR (CKD-EPI)NonAf (>60 ml/min/1.73 sqM) Glucose (74-99) mg/dL Calcium (8.4-10.2) mg/dL Magnesium (1.6-2.3) mg/dL Total Bilirubin (0.2-1.3) mg/dL AST (17-59) U/L ALT (4-49) U/L Alkaline Phosphatase (38-126) U/L Troponin I 0.072 H* (0.000-0.034) ng/mL Total Protein (6.3-8.2) g/dL Albumin (3.5-5.0) g/dL Disposition Clinical Impression: Chest pain Disposition: ADMITTED IP TO THIS [facility] Condition: Stable Is patient prescribed a controlled substance at d/c from ED?: No Referrals: None,Stated [REFERRING] - 1-2 days Time of Disposition: 16:18
[2022-10-04 15:55] LABS: ALT 63 U/L (4-49); AST 65 U/L (17-59); African American GFR (CKD) >90 (>60 ml/min/1.73 sqM); Albumin 4.2 g/dL (3.5-5.0); Alkaline Phosphatase 56 U/L (38-126); Anion Gap 10 mmol/L; Blood Urea Nitrogen 12 mg/dL (9-20); Calcium 9.1 mg/dL (8.4-10.2); Carbon Dioxide 26 mmol/L (22-30); Chloride 99 mmol/L (98-107); Glucose 108 mg/dL (74-99); Magnesium 1.9 mg/dL (1.6-2.3); Non-African American GFR(CKD) 88 (>60 ml/min/1.73 sqM); Potassium 3.3 mmol/L (3.5-5.1); Sodium 135 mmol/L (137-145); Total Bilirubin 1.9 mg/dL (0.2-1.3); Total Protein 6.6 g/dL (6.3-8.2)
--- NOTE | 2022-10-04 16:01 | XR ---
EXAMINATION TYPE: XR chest 1V portable DATE OF EXAM: 10/04/2022 COMPARISON: 01/01/2021 HISTORY: Chest pain TECHNIQUE: Single frontal view of the chest is obtained. FINDINGS: There is no focal air space opacity, pleural effusion, or pneumothorax seen. The cardiac silhouette size is within normal limits. The osseous structures are intact. IMPRESSION: No acute process.
[2022-10-04] MEDS ORDERED: NALOXONE 0.4 MG/ML 1 ML VIAL IV PRN (16:12)
[2022-10-04] MEDS ORDERED: POTASSIUM CHLORIDE ER 20 MEQ TAB.ER PO STA (16:14)
[2022-10-04] MEDS: SODIUM CHLORIDE 0.9% 1,000 ML IV SCH (16:59)
--- NOTE | 2022-10-04 17:25 | P.HPIM ---
History of Present Illness H&P Date: 10/04/22 Patient is a 62-year-old male with history of coronary artery disease status post LAD stent placed 2 days ago, hypertension, dyslipidemia, JAN presenting with worsening chest pain. He claims that he was discharged home yesterday, did okay once he got home. Started having some minimal chest pain at night, took nitroglycerin. Again had more chest pain this afternoon, took 3 nitroglycerin without much relief. He then decided come to the hospital. Denies any significant nausea or vomiting, shortness of breath, abdominal pain, urinary or bowel complaints. Does not smoke, almost daily alcohol use, but no alcohol in the past few days, no illicit drug use. In the ED, temperature 98.1, pulse 69, respiratory 20, blood pressure 149/100, saturating at 97% on room air. Laboratory evaluation showed WBC 9.5, sodium 135, potassium 2.3, creatinine 0.94, magnesium 1.9, troponin 0.07 to, mildly elevated total bilirubin and, AST and ALT. Chest x-ray showed no acute process. EKG shows no ST-T wave significant changes. Patient was given nitroglycerin in the ED, now chest pain-free. Cardiology consulted. Patient being admitted for observation for further evaluation. Pertinent positives and negatives as discussed in HPI, a complete review of systems was performed and all other systems are negative. Patient seen and examined at bedside. Vital signs reviewed General: nontoxic, no distress, appears at stated age Derm: warm, dry Head: atraumatic, normocephalic, symmetric Eyes: EOMI, no lid lag, anicteric sclera, pupils equal round reactive to light ENT: Nose and ears atraumatic Neck: No thyromegaly, supple Mouth: no lip lesion, mucus membranes moist Cardiovascular: S1S2 reg, no murmur, no edema Lungs: clear to auscultation bilateral, no rhonchi, no rales, no wheeze, no accessory muscle use Abdominal: soft, nontender to palpation, no guarding, no appreciable o rganomegaly Ext: no gross muscle atrophy, muscle strength muscle strength 5 out of 5 in all 4 extremities, no contractures Neuro: CN II-XII grossly intact Psych: Alert, oriented, appropriate affect Assessment/Plan: Active: Chest pain Elevated troponin Coronary artery disease status post LAD stent 2 days ago Hyperlipidemia Hypertension Hypokalemia -Currently chest pain-free -Unstable angina still possible given he still has some disease in the circumflex and RCA, plan was to do staged PCI later time. -Elevated troponin likely in the setting of recent stent, continue to trend -Continue aspirin, effient, and statin -On nitroglycerin drip -Cardiology consulted -Continue telemetry -Given 40 mEq of potassium in the ED The patient is admitted with an anticipated less than 2 midnight stay as observation status for evaluation of chest pain. Surrogate decision-maker: Significant other CODE STATUS: Full code DVT prophylaxis: Subcu heparin Anticipated discharge date: 1-[address]: home A total of 55 minutes was spent on the care of this complex patient more than 50% of the time was spent in counseling and care coordination. Past Medical History Past Medical History: No Reported History History of Any Multi-Drug Resistant Organisms: None Reported Past Surgical History: No Surgical Hx Reported Additional Past Surgical History / Comment(s): stent placement Smoking Status: Never smoker Past Alcohol Use History: None Reported Past Drug Use History: None Reported - Past Family History Father Family Medical History: Chest Pain / Angina Medications and Allergies Home Medications Medication Instructions Recorded Confirmed Type Cetirizine HCl [Zyrtec] 10 mg PO HS 10/02/22 10/04/22 History Pramipexole [Mirapex] 0.25 mg PO HS 10/02/22 10/04/22 History Aspirin 81 mg PO DAILY tab 10/03/22 10/04/22 Rx Atorvastatin [Lipitor] 80 mg PO HS #90 tab 10/03/22 10/04/22 Rx Losartan [Cozaar] 50 mg PO DAILY #90 tab 10/03/22 10/04/22 Rx Metoprolol Tartrate [Lopressor] 25 mg PO BID #180 tab 10/03/22 10/04/22 Rx Nitroglycerin Sl Tabs [Nitrostat] 0.4 mg SUBLINGUAL Q5M PRN #25 tab 10/03/22 10/04/22 Rx Prasugrel [Effient] 10 mg PO DAILY #90 tab 10/03/22 10/04/22 Rx Allergies Allergy/AdvReac Type Severity Reaction Status Date / Time No Known Allergies Allergy Verified 10/04/22 15:23 Physical Exam Vitals: Vital Signs Temp Pulse Resp BP Pulse Ox 10/04/22 16:58 64 18 117/84 97 10/04/22 16:23 64 18 109/90 97 10/04/22 16:09 67 18 141/99 97 10/04/22 15:55 64 18 139/95 97 10/04/22 15:42 67 20 136/98 97 10/04/22 15:37 65 18 117/62 98 10/04/22 15:12 98.1 F 69 20 149/100 97 Intake and Output 10/04/22 10/04/22 10/04/22 06:59 14:59 22:59 Intake Total 4.05 Balance 4.05 Intake: Intake, IV Titration 4.05 Amount Nitroglycerin-D5w Pmx 50 4.05 mg In Dextrose/Water 1 250ml.bag @ 5 MCG/MIN 1.5 mls/hr IV .Q24H ONE Rx#: [id number] Other: Weight 92.533 kg Results CBC & Chem 7: 10/04/22 15:31 10/04/22 15:31 Labs: Abnormal Lab Results - Last 24 Hours (Table) 10/04/22 10/04/22 10/04/22 Range/Units 15:31 15:31 15:31 MCH 35.8 H (25.0-35.0) pg Sodium 135 L (137-145) mmol/L Potassium 3.3 L (3.5-5.1) mmol/L Glucose 108 H (74-99) mg/dL Total Bilirubin 1.9 H (0.2-1.3) mg/dL AST 65 H (17-59) U/L ALT 63 H (4-49) U/L Troponin I 0.072 H* (0.000-0.034) ng/mL
[2022-10-04] MEDS: HYDROmorphone 0.5 MG/0.5 ML SYRINGE IVP PRN ×2 (19:57→23:33)
[2022-10-04] MEDS: METOPROLOL TARTRATE 25 MG TAB PO SCH (20:20)
[2022-10-04] MEDS: PRAMIPEXOLE 0.25 MG TAB PO SCH (20:20)
[2022-10-04] MEDS: LORATADINE 10 MG TAB PO SCH (20:20)
[2022-10-04] MEDS: ATORVASTATIN 80 MG TAB PO SCH (20:20)
[2022-10-05] MEDS ORDERED: HEPARIN SODIUM,PORCINE/PF 5,000 UNIT/0.5 ML SYRINGE SQ SCH
[2022-10-05 00:23] LABS: Glucose,Whole Blood 119 mg/dL (70-110)
[2022-10-05] MEDS ORDERED: HEPARIN SODIUM 1,000 UN/ML (10ML VL) IV ONE (00:36)
[2022-10-05] MEDS ORDERED: HEPARIN SODIUM 1,000 UN/ML (10ML VL) IV PRN (00:36)
[2022-10-05] MEDS: HEPARIN SOD,PORK IN 0.45% NACL 25,000 UNIT in 0.45% NACL 1 250ML.BAG IV SCH (00:42)
[2022-10-05] MEDS: METOCLOPRAMIDE 5 MG/ML 2 ML VIAL IVP PRN (00:43)
[2022-10-05] MEDS ORDERED: MORPHINE SULFATE 2 MG/ML SYRINGE IVP PRN (02:29)
[2022-10-05] MEDS: SODIUM CHLORIDE 0.9% 1,000 ML IV SCH ×2 (06:45→17:32)
[2022-10-05] MEDS: PRASUGREL 10 MG TAB PO SCH (08:51)
[2022-10-05] MEDS: METOPROLOL TARTRATE 25 MG TAB PO SCH ×2 (08:51→20:39)
[2022-10-05] MEDS: LOSARTAN 50 MG TAB PO SCH (08:51)
[2022-10-05] MEDS: ASPIRIN 81 MG PO SCH (08:51)
[2022-10-05] MEDS ORDERED: VERAPAMIL 2.5 MG/ML 2 ML AMP ONE (09:44)
[2022-10-05] MEDS ORDERED: IV FLUID CONTINUATION 1,000 ML IV ONE (09:45)
[2022-10-05 09:46] LABS: ALT 87 U/L (4-49); AST 93 U/L (17-59); African American GFR (CKD) >90 (>60 ml/min/1.73 sqM); Albumin 3.5 g/dL (3.5-5.0); Alkaline Phosphatase 48 U/L (38-126); Anion Gap 9 mmol/L; Blood Urea Nitrogen 15 mg/dL (9-20); Calcium 8.1 mg/dL (8.4-10.2); Carbon Dioxide 22 mmol/L (22-30); Chloride 105 mmol/L (98-107); Glucose 93 mg/dL (74-99); Non-African American GFR(CKD) >90 (>60 ml/min/1.73 sqM); Potassium 3.2 mmol/L (3.5-5.1); Sodium 136 mmol/L (137-145); Total Bilirubin 1.4 mg/dL (0.2-1.3); Total Protein 5.7 g/dL (6.3-8.2)
[2022-10-05] MEDS ORDERED: LIDOCAINE 1% INJ 10MG/ML (20 ML MDV) ONE (10:00)
[2022-10-05] MEDS: MIDAZOLAM 2 MG/2 ML VIAL IV ONE ×2 (10:03→10:24)
[2022-10-05] MEDS ORDERED: LIDOCAINE 1% INJ 10MG/ML (30 ML VIAL-PF) SQ ONE (10:03)
[2022-10-05] MEDS ORDERED: fentaNYL (PF) 50 MCG/1 ML VIAL IV ONE ×2 (10:05→10:12)
[2022-10-05] MEDS ORDERED: fentaNYL (PF) 50 MCG/ML 2 ML AMP ONE (10:07)
[2022-10-05] MEDS ORDERED: HEPARIN SODIUM 1,000 UN/ML (10ML VL) ONE (10:24)
[2022-10-05] MEDS ORDERED: NITROGLYCERIN 1000MCG/10ML SYRINGE INTRACORON ONE (10:36)
[2022-10-05] MEDS ORDERED: IOPAMIDOL-370 100ML BTL INJ ONE ×2 (10:37→10:49)
[2022-10-05] MEDS ORDERED: MAG HYDROX/AL HYDROX/SIMETH 30 ML CUP PO PRN (10:57)
[2022-10-05] MEDS ORDERED: ATROPINE SULFATE 0.1 MG/ML 10ML SYRINGE IV PRN (10:57)
[2022-10-05] MEDS ORDERED: NITROGLYCERIN SL TABS 0.4 MG TAB SUBLINGUAL PRN (10:57)
[2022-10-05] MEDS ORDERED: ZOLPIDEM 5 MG TAB PO PRN (10:57)
[2022-10-05] MEDS ORDERED: RX INFO: IV CONTRAST WAS GIVEN 1 EACH MISC MISCELLANE PRN (10:57)
[2022-10-05] MEDS ORDERED: SODIUM CHLORIDE 0.9% 1,000 ML in EMPTY BAG 1 BAG IV SCH (11:00)
--- NOTE | 2022-10-05 11:07 | P.PCN ---
Date of Procedure: 10/05/22 Operative Findings: CARDIAC CATHETERIZATION AND PERCUTANEOUS CORONARY INTERVENTION PERFORMING PHYSICIAN: Elfego Ortiz MD, RPVI PROCEDURE PERFORMED: 1. Selective right and left coronary angiogram 2. Left heart catheterization 3. Successful stenting of OM1 of the LCx using 2.25 x 15 mm Xience DANIEL with an excellent angiographic results 4. iFR of the right coronary artery 5. Right common femoral artery and INDICATION: This is a 62-year-old gentleman who underwent stenting of the left anterior descending artery 2 days ago presented back to the hospital complaining of chest discomfort concerning for angina. His troponin was mildly elevated. In the light of ongoing chest discomfort a heart catheterization was advised COMPLICATION: None APPROACH: Right common femoral artery LEVEL OF SEDATION: Moderate with the sedation time off 55 minutes PROCEDURE DESCRIPTION: After obtaining an informed consent the patient was brought to the cardiac chemical laboratory assistant. The right common femoral artery was cannulated using micropuncture technique, the micropuncture wire passed easily then I placed a 6-Divehi sheath. After that I did selective right and left coronary angiogram with a JR4 and JL 4 catheters. After that left heart catheterization was performed using 6-Divehi pigtail catheter. Then I did intervene on the OM1 of the left circumflex and also did an FFR of the RCA. The procedure was completed there was no complication SELECTIVE CORONARY ANGIOGRAM: The right coronary artery: Large caliber vessel was mild disease only. Distally bifurcates into a CREDIT VERIFIER branch which appeared to be angiographically normal and PLV which is a large caliber vessel with intermediate lesion. I did iFR that came in to be nonischemic. Left main: Is angiographically normal. Bifurcates into an ulcer X and LAD The left circumflex: Large caliber vessel and codominant vessel. The LCx proximally has mild disease only. Gives rises into an OM1 which is a medium caliber vessel as tight lesion in the proximal portion. The circumflex distally appeared to be normal and gives rises into an OM to which appeared to have mild disease only and then gives rise into PDA and PLV branches both appeared to be angiographically normal. The left anterior descending artery: Large caliber vessel. The proximal LAD is a stented and the stent appeared to be widely patent. The mid and distal LAD appeared to have mild disease only. The LAD proximally gives rises into a first diagonal branch which is medium to large caliber vessel with ostial lesion appears to be in the range of 70-80% jailed by the stent. HEMODYNAMICS: The LVEDP was 15 mmHg was no significant gradient across aortic valve PCI OF OM-1 AND iFR OF THE RCA: Anticoagulation was initiated using heparin with continuous ACT monitoring. Subsequently after engagement the left main using JL4 guiding catheter I did wire OM1 using 2 wires. The first wire was a run-through wire and the second wire was was per wire. The reason off using 2 wires because the take off of OM1 was extremely angulated and I needed support. Subsequently balloon angioplasty was performed using 2 mm balloon before I deployed 22 5 x 15 mm stent where the stent was positioned under fluoroscopy guidance and deployed under its nominal pressure with the following angiogram showing good angiographic results. After that I did 0 the Doppler wire and equalized between the Doppler wire and guiding catheter which was JR4 guiding catheter. After that the RCA was engaged. The PLV branch was wired. We did iFR and that came in to be nonischemic. The procedure was completed was no complication CONCLUSION: 1. Patent stent in the proximal LAD. The ostial first diagonal branch of the LAD was jailed by the stent but has not change compared to before and has EDNA-3 flow. 2. Severe disease involving the first obtuse marginal branch. I did perform successful stenting of OM1 with an excellent angiographic results 3. Intermediate disease involving the PLV branch of the RCA. We did iFR and that came in to be non-flow limiting. POSTPROCEDURE MANAGEMENT: 1. Dual antiplatelet therapy using Effient and aspirin for 12 month 2. Aggressive cholesterol control 3. Follow-up with the patient
--- NOTE | 2022-10-05 11:42 | P.CRDCN ---
History of Present Illness Consult date: 10/05/22 Consult reason: chest pain History of present illness: The patient is a 62-year-old male who was recently discharged from the hospital after a non-ST elevated myocardial infarction and undergoing stenting of the proximal LAD. He returned to the emergency room with acute onset of chest pressure. He had taken 3 doses of nitroglycerin without relief. He was admitted to the hospital and started on nitroglycerin drip, which did not improve his symptoms. He states the symptoms are worse than what he initially presented with prior to his NSTEMI. DIAGNOSTICS: EKG shows sinus mechanism without ST or T-wave abnormalities Chest x-ray shows no acute cardiopulmonary process Sodium 136, potassium 3.2, BUN 15, creatinine 0.69, AST 93, ALT 87, troponin 0.07, 0.06, 0.06 REVIEW OF SYSTEMS: No fever or chills. No cough or expectoration. No diaphor esis. Patient denies headache, dizziness, blurred vision, double vision. Patient denies any stomach discomfort. No nausea, vomiting. No hematochezia. No hematemesis. Denies any black stools or blood in his stools. Denies dysuria or hematuria. No muscle weakness or numbness. Positive for chest pressure. No difficulty breathing currently. No orthopnea. PHYSICAL EXAMINATION: This is a 62-year-old male in mild distress at the time of my examination. Currently having chest pain. HEENT: Head is atraumatic, normocephalic. Pupils are equal, round. Sclerae anicteric. Conjunctivae are clear. Mucous membranes of the mouth are moist. Neck is supple. There is no jugular venous distention. No carotid bruit is heard. CHEST EXAMINATION: Lungs are clear to auscultation. No chest wall tenderness is noted on palpation or with deep breathing. HEART EXAMINATION: Heart regular rate and rhythm. S1, S2 heard. No murmurs, gallops or rub. ABDOMEN: Soft, nontender. Bowel sounds are heard. No organomegaly noted. EXTREMITIES: 2+ peripheral pulses with no evidence of peripheral edema and no calf tenderness noted. Right groin site is completely healed. NEUROLOGIC EXAMINATION: Patient is awake, alert and oriented x3. FINAL ASSESSMENT AND PLAN: Angina, recurrent Multivessel coronary artery disease, recent stenting of proximal LAD PLAN: Proceed with coronary angiogram to evaluate patency of proximal LAD stent Consider intervention on left circumflex and RCA lesions Supplement potassium per protocol Further recommendations to be based on clinical course I am dictating on behalf of Dr Ajay Escobar's history/physical and assessment/plan. Past Medical History Past Medical History: Chest Pain / Angina History of Any Multi-Drug Resistant Organisms: None Reported Past Surgical History: Heart Catheterization With Stent Additional Past Surgical History / Comment(s): stent to LAD 10/02 Past Anesthesia/Blood Transfusion Reactions: No Reported Reaction Date of Last Stent Placement:: 10/02/22 Past Psychological History: No Psychological Hx Reported Smoking Status: Never smoker Past Alcohol Use History: None Reported Past Drug Use History: None Reported - Past Family History Father Family Medical History: Chest Pain / Angina Medications and Allergies Home Medications Medication Instructions Recorded Confirmed Type Cetirizine HCl [Zyrtec] 10 mg PO HS 10/02/22 10/04/22 History Pramipexole [Mirapex] 0.25 mg PO HS 10/02/22 10/04/22 History Aspirin 81 mg PO DAILY tab 10/03/22 10/04/22 Rx Atorvastatin [Lipitor] 80 mg PO HS #90 tab 10/03/22 10/04/22 Rx Losartan [Cozaar] 50 mg PO DAILY #90 tab 10/03/22 10/04/22 Rx Metoprolol Tartrate [Lopressor] 25 mg PO BID #180 tab 10/03/22 10/04/22 Rx Nitroglycerin Sl Tabs [Nitrostat] 0.4 mg SUBLINGUAL Q5M PRN #25 tab 10/03/22 10/04/22 Rx Prasugrel [Effient] 10 mg PO DAILY #90 tab 10/03/22 10/04/22 Rx Allergies Allergy/AdvReac Type Severity Reaction Status Date / Time No Known Allergies Allergy Verified 10/04/22 15:23 Physical Exam Vitals: Vital Signs Temp Pulse Pulse Resp BP BP Pulse Ox 10/05/22 04:59 99.0 F 67 16 148/86 100 10/05/22 02:00 30 L 16 10/04/22 23:46 98.6 F 10/04/22 23:36 66 20 158/88 99 10/04/22 21:17 98.2 F 60 22 160/92 100 10/04/22 20:19 63 18 139/81 95 10/04/22 16:58 64 18 117/84 97 10/04/22 16:23 64 18 109/90 97 10/04/22 16:09 67 18 141/99 97 10/04/22 15:55 64 18 139/95 97 10/04/22 15:42 67 20 136/98 97 10/04/22 15:37 65 18 117/62 98 10/04/22 15:12 98.1 F 69 20 149/100 97 Intake and Output 10/04/22 10/05/22 10/05/22 22:59 06:59 14:59 Intake Total 23.625 Output Total 600 Balance 23.625 -600 Intake: Intake, IV Titration 23.625 Amount Nitroglycerin-D5w Pmx 50 23.625 mg In Dextrose/Water 1 250ml.bag @ 5 MCG/MIN 1.5 mls/hr IV .Q24H ONE Rx#: [id number] Output: Urine 600 Other: Voiding Method Urinal # Voids 1 Weight 92.533 kg Results 10/04/22 15:31 10/05/22 08:53 Cardiac Enzymes 10/04/22 10/04/22 10/04/22 Range/Units 15:31 15:31 17:00 AST 65 H (17-59) U/L Troponin I 0.072 H* 0.064 H* (0.000-0.034) ng/mL 10/04/22 Range/Units 21:03 AST (17-59) U/L Troponin I 0.067 H* (0.000-0.034) ng/mL Coagulation 10/04/22 Range/Units 15:31 PT 11.6 (9.0-12.0) sec APTT 24.0 (22.0-30.0) sec CBC 10/04/22 Range/Units 15:31 WBC 9.5 (3.8-10.6) k/uL RBC 4.57 (4.30-5.90) m/uL Hgb 16.4 (13.0-17.5) gm/dL Hct 45.3 (39.0-53.0) % Plt Count 218 (150-450) k/uL Comprehensive Metabolic Panel 10/04/22 Range/Units 15:31 Sodium 135 L (137-145) mmol/L Potassium 3.3 L (3.5-5.1) mmol/L Chloride 99 (98-107) mmol/L Carbon Dioxide 26 (22-30) mmol/L BUN 12 (9-20) mg/dL Creatinine 0.94 (0.66-1.25) mg/dL Glucose 108 H (74-99) mg/dL Calcium 9.1 (8.4-10.2) mg/dL AST 65 H (17-59) U/L ALT 63 H (4-49) U/L Alkaline Phosphatase 56 (38-126) U/L Total Protein 6.6 (6.3-8.2) g/dL Albumin 4.2 (3.5-5.0) g/dL Current Medications Generic Name Dose Route Start Last Admin Trade Name Freq PRN Reason Stop Dose Admin Aspirin 81 mg 10/05/22 09:00 Aspirin 81 Mg PO DAILY [facility] Atorvastatin Calcium 80 mg 10/04/22 21:00 10/04/22 20:20 Atorvastatin 80 Mg Tab PO 80 mg HS HAYLIE Administration Heparin Sodium (Porcine) 0 unit 10/05/22 00:36 Heparin Sodium 1,000 Un/Ml (10ml Vl) IV PER PROTOCOL PRN Low PTT Protocol Hydromorphone HCl 0.5 mg 10/04/22 16:12 10/04/22 23:33 Hydromorphone 0.5 Mg/0.5 Ml Syringe IVP 0.5 mg Q3HR PRN Administration Moderate Pain (Scale 4 to 6) Nitroglycerin/Dextrose 50 mg/ 250 mls @ 1.5 mls/hr 10/04/22 15:23 10/04/22 21:21 IV Solution IV 10/05/22 15:22 15 mcg/min .Q24H ONE 4.5 mls/hr Titration Protocol 5 MCG/MIN Sodium Chloride 1,000 mls @ 75 mls/hr 10/04/22 16:15 10/05/22 06:45 Saline 0.9% IV Not Given .[id number] [facility] Heparin Sodium/Sodium Chloride 250 mls @ 10.003 mls/hr 10/05/22 00:45 10/05/22 00:42 25,000 unit/ Sodium Chloride IV 10.81 units/kg/hr .Q24H HAYLIE 10.003 mls/hr Administration Protocol 10.81 UNITS/KG/HR Loratadine 10 mg 10/04/22 21:00 10/04/22 20:20 Loratadine 10 Mg Tab PO 10 mg HS HAYLIE Administration Losartan Potassium 50 mg 10/05/22 09:00 Losartan 50 Mg Tab PO DAILY HAYLIE Metoclopramide HCl 5 mg 10/05/22 00:34 10/05/22 00:43 Metoclopramide 5 Mg/Ml 2 Ml Vial IVP 5 mg Q6HR PRN Administration Nausea And Vomiting Metoprolol Tartrate 25 mg 10/04/22 21:00 10/04/22 20:20 Metoprolol Tartrate 25 Mg Tab PO 25 mg BID HAYLIE Administration Morphine Sulfate 2 mg 10/05/22 02:29 10/05/22 06:36 Morphine Sulfate 2 Mg/Ml Syringe IVP 2 mg Q6HR PRN Administration Pain/Discomfort Naloxone HCl 0.2 mg 10/04/22 16:12 Naloxone 0.4 Mg/Ml 1 Ml Vial IV Q2M PRN Opioid Reversal Pramipexole Dihydrochloride 0.25 mg 10/04/22 21:00 10/04/22 20:20 Pramipexole 0.25 Mg Tab PO 0.25 mg HS HAYLIE Administration Prasugrel 10 mg 10/05/22 09:00 Prasugrel 10 Mg Tab PO DAILY HAYLIE Intake and Output 10/04/22 10/05/22 10/05/22 22:59 06:59 14:59 Intake Total 23.625 Output Total 600 Balance 23.625 -600 Intake: Intake, IV Titration 23.625 Amount Nitroglycerin-D5w Pmx 50 23.625 mg In Dextrose/Water 1 250ml.bag @ 5 MCG/MIN 1.5 mls/hr IV .Q24H ONE Rx#: [id number] Output: Urine 600 Other: Voiding Method Urinal # Voids 1 Weight 92.533 kg 10/04/22 15:31 10/04/22 15:31
--- NOTE | 2022-10-05 16:19 | P.PN ---
Subjective Progress Note Date: 10/05/22 Hospital Course: 62-year-old male with history of coronary artery disease status post LAD stent placed 2 days ago, hypertension, dyslipidemia, JAN presenting with worsening chest pain. In the ED, temperature 98.1, pulse 69, respiratory 20, blood pressure 149/100, saturating at 97% on room air. Laboratory evaluation showed WBC 9.5, sodium 135, potassium 2.3, creatinine 0.94, magnesium 1.9, troponin 0.07 to, mildly elevated total bilirubin and, AST and ALT. Chest x-ray showed no acute process. EKG shows no ST-T wave significant changes. Patient was given nitroglycerin in the ED, now chest pain-free. Cardiology consulted. Patient being admitted for observation for further evaluation. For recurrent angina, cardiology was consulted. Cardiac cath was done, proximal LAD stent was patent, severe disease involving the first obtuse marginal branch, successful stenting. Subjective: Patient seen and examined at bedside. No acute events overnight. Chest pain- free. Pertinent positives and negatives as discussed above, a complete review of systems was performed and all other systems are negative. Vitals Signs Reviewed. General: nontoxic, no distress, appears at stated age Derm: warm, dry Head: atraumatic, normocephalic, symmetric Eyes: EOMI, no lid lag, anicteric sclera Mouth: no lip lesion, mucus membranes moist Cardiovascular: S1S2 reg, no murmur Lungs: CTA bilateral, no rhonchi, no rales , no accessory muscle use Abdominal: soft, nontender to palpation, no guarding, no appreciable organomegaly Ext: no gross muscle atrophy, no edema, no contractures Neuro: CN II-XI grossly intact, no focal neuro deficits Psych: Alert, oriented, appropriate affect Data Reviewed Today: Pertinent Labs: Sodium 136, potassium 3.2, creatinine 0.69, total bilirubin 1.4, AST 93, ALT 87 Imaging: no new Imaging Assessment and Plan: Recurrent angina Elevated troponin Coronary artery disease status post stents Hyperlipidemia Hypertension Hypokalemia Transaminitis -Cardiology following, a cardiac cath today, shows first OM disease, stent performed, oriented stent in proximal LAD, patent -Continue dual antiplatelet therapy, statin -On metoprolol as well as losartan -40 mEq IV potassium ordered -RUQ US ordered DVT ppx: Heparin Code status: full code Anticipated discharge place: home Anticipated discharge time: pending clincial course Objective - Vital Signs Vital signs: Vital Signs Temp 99.0 F 10/05/22 04:59 Pulse 67 10/05/22 04:59 Resp 16 10/05/22 04:59 BP 148/86 10/05/22 04:59 Pulse Ox 100 10/05/22 04:59 FiO2 Intake & Output 10/04/22 10/05/22 10/05/22 18:59 06:59 18:59 Intake Total 4.05 19.575 200 Output Total 600 275 Balance 4.05 -580.425 -75 Weight 92.533 kg 92.533 kg Intake: IV 200 Intake, IV Titration 4.05 19.575 Amount Nitroglycerin-D5w Pmx 50 4.05 19.575 mg In Dextrose/Water 1 250ml.bag @ 5 MCG/MIN 1.5 mls/hr IV .Q24H ONE Rx#: [id number] Output: Urine 600 275 Other: Voiding Method Urinal # Voids 1 - Labs CBC & Chem 7: 10/04/22 15:31 10/05/22 08:53 Labs: Abnormal Lab Results - Last 24 Hours (Table) 10/04/22 10/04/22 10/04/22 Range/Units 15:31 15:31 15:31 MCH 35.8 H (25.0-35.0) pg APTT (22.0-30.0) sec Sodium 135 L (137-145) mmol/L Potassium 3.3 L (3.5-5.1) mmol/L Glucose 108 H (74-99) mg/dL POC Glucose (mg/dL) (70-110) mg/dL Calcium (8.4-10.2) mg/dL Total Bilirubin 1.9 H (0.2-1.3) mg/dL AST 65 H (17-59) U/L ALT 63 H (4-49) U/L Troponin I 0.072 H* (0.000-0.034) ng/mL Total Protein (6.3-8.2) g/dL 10/04/22 10/04/22 10/05/22 Range/Units 17:00 21:03 00:22 MCH (25.0-35.0) pg APTT (22.0-30.0) sec Sodium (137-145) mmol/L Potassium (3.5-5.1) mmol/L Glucose (74-99) mg/dL POC Glucose (mg/dL) 119 H (70-110) mg/dL Calcium (8.4-10.2) mg/dL Total Bilirubin (0.2-1.3) mg/dL AST (17-59) U/L ALT (4-49) U/L Troponin I 0.064 H* 0.067 H* (0.000-0.034) ng/mL Total Protein (6.3-8.2) g/dL 10/05/22 10/05/22 Range/Units 08:53 08:53 MCH (25.0-35.0) pg APTT 47.8 H (22.0-30.0) sec Sodium 136 L (137-145) mmol/L Potassium 3.2 L (3.5-5.1) mmol/L Glucose (74-99) mg/dL POC Glucose (mg/dL) (70-110) mg/dL Calcium 8.1 L (8.4-10.2) mg/dL Total Bilirubin 1.4 H (0.2-1.3) mg/dL AST 93 H (17-59) U/L ALT 87 H (4-49) U/L Troponin I (0.000-0.034) ng/mL Total Protein 5.7 L (6.3-8.2) g/dL
[2022-10-05] MEDS ORDERED: POTASSIUM CHLORIDE ER 20 MEQ TAB.ER PO STA (16:50)
[2022-10-05] MEDS: POTASSIUM CHLORIDE 10 MEQ in WATER FOR INJECTION 1 100ML.BAG IVPB SCH ×2 (19:39→21:00)
[2022-10-05] MEDS: PRAMIPEXOLE 0.25 MG TAB PO SCH (20:39)
[2022-10-05] MEDS: ATORVASTATIN 80 MG TAB PO SCH (20:40)
[2022-10-05] MEDS: LORATADINE 10 MG TAB PO SCH (20:40)
[2022-10-06] MEDS: HEPARIN SOD,PORK IN 0.45% NACL 25,000 UNIT in 0.45% NACL 1 250ML.BAG IV SCH ×2 (02:24→20:03)
--- NOTE | 2022-10-06 07:47 | US ---
EXAMINATION TYPE: US liver DATE OF EXAM: 10/06/2022 COMPARISON: NONE CLINICAL INDICATION: Male, 62 years old with history of transaminitis; TECHNIQUE: Multiple sonographic images of the right upper quadrant are obtained. FINDINGS: EXAM MEASUREMENTS: Liver Length: 15.4 cm Gallbladder Wall: 0.3 cm CBD: 0.6 cm Right Kidney: 11.0 x 6.3 x 5.6 cm QUILT STUFFER NOTES: Pancreas: limited visualization, mostly obscured by bowel gas. Liver: wnl Gallbladder: No stones seen Evidence for sonographic Alvarez's sign: No CBD: wnl Right Kidney: No hydronephrosis or masses seen IMPRESSION: Portions of the study are limited however no discrete abnormality is seen at this time.
[2022-10-06 08:30] LABS: ALT 108 U/L (4-49); AST 82 U/L (17-59); African American GFR (CKD) >90 (>60 ml/min/1.73 sqM); Albumin 3.6 g/dL (3.5-5.0); Alkaline Phosphatase 55 U/L (38-126); Anion Gap 9 mmol/L; Blood Urea Nitrogen 10 mg/dL (9-20); Calcium 8.5 mg/dL (8.4-10.2); Carbon Dioxide 20 mmol/L (22-30); Chloride 102 mmol/L (98-107); Glucose 156 mg/dL (74-99); Magnesium 1.9 mg/dL (1.6-2.3); Non-African American GFR(CKD) >90 (>60 ml/min/1.73 sqM); Potassium 3.5 mmol/L (3.5-5.1); Sodium 131 mmol/L (137-145); Total Bilirubin 1.4 mg/dL (0.2-1.3); Total Protein 5.9 g/dL (6.3-8.2)
[2022-10-06] MEDS: METOCLOPRAMIDE 5 MG/ML 2 ML VIAL IVP PRN ×3 (10:24→23:10)
[2022-10-06] MEDS: PANTOPRAZOLE 40 MG TABLET PO SCH (11:10)
--- NOTE | 2022-10-06 11:37 | P.PN ---
Subjective Progress Note Date: 10/06/22 This is Twan Donnelly NP, I'm dictating on behalf of Dr. Escobar's H&P and A&P. Patient was interviewed and examined. Patient is a pleasant 62-year-old male who presented to the hospital with chest pain, and underwent successful stenting of the OM1 yesterday. Patient reports that he is feeling better this morning, however is still appreciating some nausea. He denies chest pain, shortness of breath, heart palpitations. Catheter access site right femoral is intact, with no hematoma noted. GENERAL: Well-appearing, well-nourished and in no acute distress. NECK: Supple without JVD or thyromegaly. LUNGS: Breath sounds clear to auscultation bilaterally. Respiration equal and unlabored. No wheezes, rales or rhonchi. HEART: Regular rate and rhythm without murmurs, rubs or gallops. S1 and S2 hear d. EXTREMITIES: Normal range of motion, no edema. No clubbing or cyanosis. Peripheral pulses intact and strong. VITALS: Temp 99.3, pulse 71, respirations 18, blood pressure 154/93, O2 saturation 98% on room air TELEMETRY: Normal sinus rhythm LABS: Sodium 131, potassium 3.5, B1 10, creatinine 0.65 IMPRESSION: 1. Angina, recurrent 2. Multivessel coronary artery disease, recent stenting approximately LAD 3. Successful stenting of OM1 PLAN: Increase metoprolol to 50 mg twice a day. Continue vital sign monitoring, possible discharge tomorrow. Medical team to address further nausea. Further recommendations based on patient's clinical course. Objective - Vital Signs Vital signs: Vital Signs Temp 99.3 F 10/06/22 08:20 Pulse 71 10/06/22 08:20 Resp 18 10/06/22 08:20 BP 154/93 10/06/22 08:20 Pulse Ox 98 10/06/22 08:20 FiO2 Intake & Output 10/05/22 10/06/22 10/06/22 18:59 06:59 18:59 Intake Total 200 540 Output Total 275 Balance -75 540 Intake: IV 200 Oral 540 Output: Urine 275 Other: Voiding Method Urinal # Voids 1 # Bowel Movements 1 - Labs CBC & Chem 7: 10/04/22 15:31 10/06/22 07:36 Labs: Abnormal Lab Results - Last 24 Hours (Table) 10/06/ Range/Units 07:36 Sodium 131 L (137-145) mmol/L Carbon Dioxide 20 L (22-30) mmol/L Creatinine 0.65 L (0.66-1.25) mg/dL Glucose 156 H (74-99) mg/dL Total Bilirubin 1.4 H (0.2-1.3) mg/dL AST 82 H (17-59) U/L ALT 108 H (4-49) U/L Total Protein 5.9 L (6.3-8.2) g/dL
[2022-10-06] MEDS: ASPIRIN 81 MG PO SCH (12:05)
[2022-10-06] MEDS: SODIUM CHLORIDE 0.9% 1,000 ML IV SCH (12:05)
[2022-10-06] MEDS: PRASUGREL 10 MG TAB PO SCH (12:05)
[2022-10-06] MEDS: METOPROLOL TARTRATE 50 MG TAB PO SCH ×2 (12:05→20:02)
[2022-10-06] MEDS: LOSARTAN 50 MG TAB PO SCH (12:05)
[2022-10-06] MEDS: METOPROLOL TARTRATE 25 MG TAB PO SCH (12:09)
--- NOTE | 2022-10-06 12:10 | P.PN ---
Subjective Progress Note Date: 10/06/22 Hospital Course: 62-year-old male with history of coronary artery disease status post LAD stent placed 2 days ago, hypertension, dyslipidemia, JAN presenting with worsening chest pain. In the ED, temperature 98.1, pulse 69, respiratory 20, blood pressure 149/100, saturating at 97% on room air. Laboratory evaluation showed WBC 9.5, sodium 135, potassium 2.3, creatinine 0.94, magnesium 1.9, troponin 0.07 to, mildly elevated total bilirubin and, AST and ALT. Chest x-ray showed no acute process. EKG shows no ST-T wave significant changes. Patient was given nitroglycerin in the ED, now chest pain-free. Cardiology consulted. Patient being admitted for observation for further evaluation. For recurrent angina, cardiology was consulted. Cardiac cath was done, proximal LAD stent was patent, severe disease involving the first obtuse marginal branch, successful stenting. Patient continues to have further GI complaints including nausea and vomiting. Subjective: Patient seen and examined at bedside. No acute events overnight. Chest pain- free. However, has significant nausea and vomiting. Pertinent positives and negatives as discussed above, a complete review of systems was performed and all other systems are negative. Vitals Signs Reviewed. General: nontoxic, no distress, appears at stated age Derm: warm, dry Head: atraumatic, normocephalic, symmetric Eyes: EOMI, no lid lag, anicteric sclera Mouth: no lip lesion, mucus membranes moist Cardiovascular: S1S2 reg, no murmur Lungs: CTA bilateral, no rhonchi, no rales , no accessory muscle use Abdominal: soft, nontender to palpation, no guarding, no appreciable organomegaly Ext: no gross muscle atrophy, no edema, no contractures Neuro: CN II-XI grossly intact, no focal neuro deficits Psych: Alert, oriented, appropriate affect Data Reviewed Today: Pertinent Labs: Sodium 131, potassium 2.5, creatinine 0.65, total bilirubin 1.4, AST 82, ALT 108, ALP 55 Imaging: Liver ultrasound shows liver within normal limits, CBD within normal limits, no evidence of gallstones or cholecystitis Assessment and Plan: Recurrent angina Elevated troponin Coronary artery disease status post stents Dyspepsia Hyperlipidemia Hypertension Hypokalemia, resolved Transaminitis -Cardiology note reviewed, metoprolol increased to 50 mg twice a day -Continue dual antiplatelet therapy, statin -Also on losartan -Patient started on pantoprazole 40 mg daily, and Maalox as needed -Liver enzymes stable, liver ultrasound revealing DVT ppx: Heparin Code status: full code Anticipated discharge place: home Anticipated discharge time: Likely tomorrow Objective - Vital Signs Vital signs: Vital Signs Temp 99.3 F 10/06/22 08:20 Pulse 71 10/06/22 08:20 Resp 18 10/06/22 08:20 BP 154/93 10/06/22 08:20 Pulse Ox 98 10/06/22 08:20 FiO2 Intake & Output 10/05/22 10/06/22 10/06/22 18:59 06:59 18:59 Intake Total 200 540 Output Total 275 Balance -75 540 Intake: IV 200 Oral 540 Output: Urine 275 Other: Voiding Method Urinal # Voids 1 # Bowel Movements 1 - Labs CBC & Chem 7: 10/04/22 15:31 10/06/22 07:36 Labs: Abnormal Lab Results - Last 24 Hours (Table) 10/06/22 Range/Units 07:36 Sodium 131 L (137-145) mmol/L Carbon Dioxide 20 L (22-30) mmol/L Creatinine 0.65 L (0.66-1.25) mg/dL Glucose 156 H (74-99) mg/dL Total Bilirubin 1.4 H (0.2-1.3) mg/dL AST 82 H (17-59) U/L ALT 108 H (4-49) U/L Total Protein 5.9 L (6.3-8.2) g/dL
[2022-10-06] MEDS: PRAMIPEXOLE 0.25 MG TAB PO SCH (20:01)
[2022-10-06] MEDS: LORATADINE 10 MG TAB PO SCH (20:02)
[2022-10-06] MEDS: ATORVASTATIN 80 MG TAB PO SCH (20:02)
[2022-10-07 05:28] VITALS: RESP 18
[2022-10-07] MEDS: PANTOPRAZOLE 40 MG TABLET PO SCH (05:53)
[2022-10-07 08:29] LABS: African American GFR (CKD) >90 (>60 ml/min/1.73 sqM); Anion Gap 15 mmol/L; Blood Urea Nitrogen 15 mg/dL (9-20); Calcium 9.3 mg/dL (8.4-10.2); Carbon Dioxide 14 mmol/L (22-30); Chloride 105 mmol/L (98-107); Glucose 144 mg/dL (74-99); Magnesium 2.2 mg/dL (1.6-2.3); Non-African American GFR(CKD) 89 (>60 ml/min/1.73 sqM); Potassium 3.6 mmol/L (3.5-5.1); Sodium 134 mmol/L (137-145)
[2022-10-07] MEDS: METOPROLOL TARTRATE 50 MG TAB PO SCH (09:35)
[2022-10-07] MEDS: LOSARTAN 50 MG TAB PO SCH (09:35)
[2022-10-07] MEDS: ASPIRIN 81 MG PO SCH (09:35)
[2022-10-07 09:51] VITALS: BP 149/91; PULSE 87; TEMP 99
[2022-10-07] MEDS: PRASUGREL 10 MG TAB PO SCH (10:36)
--- NOTE | 2022-10-07 11:02 | P.PN ---
Subjective HISTORY OF PRESENT ILLNESS: This is 62-year-old male who follows in the office with Dr. Monterroso. Patient underwent cardiac catheterization on 10/05/2022 with PCI to the OM1. Echocardiogram completed revealing ejection fraction 55-60%. Patient examined this morning. He is sitting up in the chair. He denies chest pain or pressure. Denies shortness of breath. He has been up ambulating without difficulty. He is hoping to be discharged home today. PHYSICAL EXAM: VITAL SIGNS: Reviewed. GENERAL: Well-developed in no acute distress. NECK: Supple. No JVD or thyromegaly LUNGS: Respirations even and unlabored. Lungs essentially clear to auscultation bilaterally. HEART: Regular rate and rhythm. S1 and S2 heard. EXTREMITIES: Normal range of motion. No clubbing or cyanosis. Peripheral pulses intact. No lower extremity edema ASSESSMENT: Chest pain, status post cardiac catheterization with stenting to the OM1 Coronary artery disease with recent stenting of proximal LAD, 10/02/2022 PLAN: Continue dual antiplatelet therapy with aspirin and Effient Continue high intensity statin therapy Continue additional cardiac medications Patient to be discharged home today from a cardiac standpoint Patient states he has a follow-up appointment scheduled for Friday with Dr. Ortiz Nurse practitioner note has been reviewed by physician. Signing provider agrees with the documented findings, assessment, and plan of care. Objective - Vital Signs Vital signs: Vital Signs Temp 99 F 10/07/22 08:30 Pulse 87 10/07/22 08:30 Resp 18 10/07/22 08:30 BP 149/91 10/07/22 08:30 Pulse Ox 97 10/07/22 08:30 FiO2 Intake & Output 10/06/22 10/07/22 10/07/22 18:59 06:59 18:59 Intake Total 360 540 Balance 360 540 Intake: Oral 360 540 Other: Voiding Method Urinal Toilet Urinal # Voids 2 2 # Bowel Movements 1 - Labs CBC & Chem 7: 10/04/22 15:31 10/07/22 07:34 Labs: Abnormal Lab Results - Last 24 Hours (Table) 10/07/22 Range/Units 07:34 Sodium 134 L (137-145) mmol/L Carbon Dioxide 14 L (22-30) mmol/L Glucose 144 H (74-99) mg/dL
--- NOTE | 2022-10-07 15:25 | P.DS ---
Providers Date of admission: 10/04/22 16:12 Expected date of discharge: 10/07/22 Attending physician: Doreen Vanegas DO Consults: 10/04/22 16:12 Consult Physician Routine Consulting Provider: Ajay Escobar Consult Reason/Comments: CP, one-day status post stent Do you want consulting provider notified?: Yes 10/05/22 10:57 Consult Physician Routine Consulting Provider: [facility] Consult Reason/Comments: Post Interventional Patient Do you want consulting provider notified?: Already Contacted Primary care physician: Zak Carter MD Hospital Course: Discharge Diagnosis: Chest pain due to Coronary artery disease with PCI to OM1 Nausea and vomiting, resolved Transaminitis, improving Dyspepsia Dyslipidemia Hypertension Hypokalemia Hospital Course: Patient is a 62-year-old male for history of coronary artery disease status post stent to the LAD 2 days prior to this admission, hypertension, dyslipidemia, and JAN who presented to the ER with worsening chest pain. In the ER he underwent an extensive evaluation. He was found to have a mildly elevated troponin 0.07 and an EKG with no significant ST-T wave changes. He was given nitro in the ER which relieved his chest pain. He was placed in observation and cardiology was consulted. 10/05 and underwent cardiac catheterization with successful stenting of OM 1. He was monitored closely. He underwent a liver ultrasound which showed liver within normal limits and no gallstones. He continued to do well. His liver enzymes were normalizing. His blood pressure and heart rate remained well-controlled. He was determined stable for discharge. Of note he was found have an acidosis on day of discharge and had no anion gap. His lactic acid was normal at 1.8. It was discovered that patient had had significant nausea, vomiting, and diarrhea up until the morning of discharge. He had a negative C. diff. It was felt this was secondary to dehydration. Patient felt comfortable increasing oral liquid intake at home and following up with outpatient labs. Follow-up: Dr. Ortiz on 10/16/22, Dr. Her in 1 week. Metoprolol increased to 50 mg twice daily, Protonix added at 40 mg daily. Patient will have repeat basic metabolic profile in 3 days. He was told to increase oral intake over the next 3-4 days. Patient seen and examined at bedside. The only chest pain free. He is feeling well and wants to be discharged home. He denies any nausea, vomiting, or continued diarrhea. He feels as though he is able to go home and has no complaints currently. Vital signs reviewed and stable. General: nontoxic, no distress, appears at stated age Cardiovascular: S1S2 reg, no murmur, positive posterior tibial pulse bilateral, Lungs: CTA bilateral, no rhonchi, no rales , no accessory muscle use Abdominal: soft, nontender to palpation, no guarding, no appreciable organomegaly Ext: no gross muscle atrophy, no edema b/l lower extremities, no contractures Neuro: CN II-XI grossly intact, no focal neuro deficits Psych: Alert, oriented, appropriate affect A total of 37 minutes of time were spent preparing this complex discharge summary. Patient was discharged on 10/07/22. This dictation was prepared using [employer] voice recognition software. Though every attempt is made to correct errors during dictation some may still exist. Patient Condition at Discharge: Stable Plan - Discharge Summary Discharge Rx Participant: Yes New Discharge Prescriptions: New Metoprolol Tartrate [Lopressor] 50 mg PO BID #60 tab Pantoprazole [Protonix] 40 mg PO AC-BRKFST #30 tab Continue Losartan [Cozaar] 50 mg PO DAILY #90 tab Prasugrel [Effient] 10 mg PO DAILY #90 tab Nitroglycerin Sl Tabs [Nitrostat] 0.4 mg SUBLINGUAL Q5M PRN #25 tab PRN Reason: Chest Pain Pramipexole [Mirapex] 0.25 mg PO HS Cetirizine HCl [Zyrtec] 10 mg PO HS Aspirin 81 mg PO DAILY tab Atorvastatin [Lipitor] 80 mg PO HS #90 tab Discontinued Metoprolol Tartrate [Lopressor] 25 mg PO BID #180 tab Discharge Medication List Cetirizine HCl [Zyrtec] 10 mg PO HS 10/02/22 [History] Pramipexole [Mirapex] 0.25 mg PO HS 10/02/22 [History] Aspirin 81 mg PO DAILY tab 10/03/22 [Rx] Atorvastatin [Lipitor] 80 mg PO HS #90 tab 10/03/22 [Rx] Losartan [Cozaar] 50 mg PO DAILY #90 tab 10/03/22 [Rx] Nitroglycerin Sl Tabs [Nitrostat] 0.4 mg SUBLINGUAL Q5M PRN #25 tab 10/03/22 [Rx] Prasugrel [Effient] 10 mg PO DAILY #90 tab 10/03/22 [Rx] Metoprolol Tartrate [Lopressor] 50 mg PO BID #60 tab 10/07/22 [Rx] Pantoprazole [Protonix] 40 mg PO AC-BRKFST #30 tab 10/07/22 [Rx] Follow up Appointment(s)/Referral(s): Elfego Ortiz MD [STAFF PHYSICIAN] - 10/16/22 4:00 pm Zak Carter MD [Primary Care Provider] - 1 Week None,Stated [REFERRING] - 1-2 days Ambulatory/Diagnostic Orders: Basic Metabolic Panel [LAB.AMB] Time Frame: 3 Days, Location: None Selected Patient Instructions/Handouts: *Surgery [facility] - After Heart Catheterization - Sales Support Engineer Instructions Activity/Diet/Wound Care/Special Instructions: Activity: As tolerated Diet: Heart Healthy Special Instructions: Increase fluid intake of the next 3-4 days (electroyte enhanced if able such as gatorade or rehydration solution), if diarrhea return please seek medical attention Repeat Labs in 3 days Discharge Disposition: HOME SELF-CARE
== END 2022-10-07 10:50 | disposition home or self-care (01) ==
LOC: EC 14:57 → 6NMEDSUR 16:12 → 3SCARD 17:52
PROVIDERS: ADMIT Internal Medicine; ATTEND Internal Medicine
DX: I25.10 Atherosclerotic heart disease of native coronary artery without angina pectoris (principal); Z95.5 Presence of coronary angioplasty implant and graft; R11.2 Nausea with vomiting, unspecified; R74.01 Elevation of levels of liver transaminase levels; E86.0 Dehydration; R10.13 Epigastric pain; E78.5 Hyperlipidemia, unspecified; I10 Essential (primary) hypertension; E87.6 Hypokalemia; G47.33 Obstructive sleep apnea (adult) (pediatric); Z79.82 Long term (current) use of aspirin; Z79.899 Other long term (current) drug therapy
CPT/HCPCS: 96366 ×3; 96372 ×2; 96365; 99285; 36415; 93005; 93458; 93799; 80053 ×3; 80048; 83605; 83735 ×3; 84484; 85025; 85610; 85730 ×2; 87324; 71045; 76705; G0378 ×5; C9600; C1760; C1769 ×5; C1887 ×2; C1894 ×2; C1725; C1874; J2250; J2765 ×2; J2001; J2270; J1644 ×4; J1170; Q9967; J3010

== ENCOUNTER → 2022-11-13 | Outpatient (CLI) | payer OTHER ==
--- NOTE | 2022-11-13 13:07 | US ---
EXAMINATION TYPE: US scrotum with doppler. Grayscale and color Doppler Duplex imaging performed of t pamela scrotum. DATE OF EXAM: 11/13/2022 COMPARISON: NONE CLINICAL INDICATION: Male, 62 years old with history of N45.1 EPIDIDYMITIS; pt has reservoir within m id scrotal sac for ED purpose, chronic right superior scrotal pain EXAM MEASUREMENTS: TESTICLES: Right Testicle: 4.6 x 2.3 x 3.3 cm Left Testicle: 5.9 x 2.4 x 2.3 cm, diffusely heterogeneous EPIDIDYMIS HEAD: Right Epididymis: 1.4 x 0.6 cm, diffusely heterogenous without increased vascularity, there does appe ar to be an exophytic 5mm cyst Left Epididymis: 1.4 x 0.4 cm, diffusely heterogenous Doppler performed to assess for testicular vascularity; good bilateral color flow and waveforms are s een. There is no evidence of testicular torsion. Presence of hydroceles: no Presence of varicoceles: yes, bilateral IMPRESSION: 1. No evidence of testicular torsion or intratesticular mass. 2. Right epididymal simple cyst. 3. Bilateral varicoceles.
== END | disposition home or self-care (01) ==
LOC: RADUSWWP 12:20
PROVIDERS: ATTEND Internal Medicine
DX: I86.1 Scrotal varices (principal); N45.1 Epididymitis; N50.3 Cyst of epididymis; R06.02 Shortness of breath
CPT/HCPCS: 76870; 93975

== ENCOUNTER 2022-12-25 09:50 | Day surgery (SDC) | payer OTHER ==
[2022-12-23 10:52] VITALS: BMI 30.1
[~2022-12-25 09:50] MED LIST: LACTATED RINGERS 1,000 ML IV SCH; LIDOCAINE 1% (10MG/ML) FOR IV START INTRADERMA PRN
[2022-12-25 10:24] VITALS: RESP 18; TEMP 97.8
[2022-12-25] MEDS ORDERED: LIDOCAINE 2% INJ 20 MG/ML (2 ML VIAL) ONE (10:42)
[2022-12-25] MEDS ORDERED: PROPOFOL 10 MG/ML 20 ML VIAL IV ONE (10:42)
--- NOTE | 2022-12-25 11:08 | P.PCN ---
Date of Procedure: 12/25/22 Procedure(s) Performed: BRIEF HISTORY: Patient is a 62-year-old pleasant white male scheduled for an elective colonoscopy as a part of screening for colon cancer/history of colon polyps. PROCEDURE PERFORMED: Colonoscopy with biopsy and snare polypectomy PREOPERATIVE DIAGNOSIS: Screening for colon cancer/history of colon polyps. IV sedation per Anesthesia. PROCEDURE: After informed consent was obtained, the patient, was brought into the endoscopy unit. IV sedation was administered by Anesthesia under continuous monitoring. Digital rectal examination was normal. Initially the Olympus CF-160 flexible video colonoscope was then inserted in the rectum, gradually advanced into the cecum without any difficulty. Careful examination was performed as the scope was gradually being withdrawn. Ileocecal valve and the appendiceal orifice were visualized and appeared normal. Prep was excellent. Mucosa of the cecum, ascending colon, transverse colon, appeared normal. In the descending colon there was a 3 mm polyp that was removed by cold biopsy. In the sigmoid colon there was a 7 mm polyp that was removed by cold snare polypectomy. Rest of the descending colon, sigmoid colon, and rectum appeared normal. Retroflexion was performed in the rectum and no lesions were seen. The patient tolerated the procedure well. IMPRESSION: 3 mm descending colon polyp status post cold biopsy 7 mm sigmoid colon polyp status post cold snare polypectomy RECOMMENDATIONS: Findings of this examination were discussed with the patient as well as his family. She he was advised to follow with the biopsy results. If the biopsy reveals adenoma he can have a repeat colonoscopy in 5 years..
[2022-12-25 11:30] VITALS: BP 146/91; PULSE 71
== END 2022-12-25 11:45 | disposition home or self-care (01) ==
LOC: ORWHC2ENDO 09:50
PROVIDERS: ATTEND Internal Medicine Gastroenterology
DX: Z12.11 Encounter for screening for malignant neoplasm of colon (principal); D12.5 Benign neoplasm of sigmoid colon; D12.4 Benign neoplasm of descending colon; I25.10 Atherosclerotic heart disease of native coronary artery without angina pectoris; Z86.010 Personal history of colon polyps; E78.5 Hyperlipidemia, unspecified; F17.210 Nicotine dependence, cigarettes, uncomplicated; F12.90 Cannabis use, unspecified, uncomplicated; Z79.810 Long term (current) use of selective estrogen receptor modulators (SERMs); Z79.02 Long term (current) use of antithrombotics/antiplatelets; Z79.811 Long term (current) use of aromatase inhibitors; Z79.899 Other long term (current) drug therapy
CPT/HCPCS: 88305; 45380; 45385; J2704; J2001

== ENCOUNTER → 2023-01-31 | Outpatient (CLI) | payer OTHER ==
[2023-02-01 01:54] LABS: HCT 43.4 % (39.6-50.0); MCH 33.1 pg (27.0-32.0); MCHC 34.6 d/dL (32.0-37.0); MCV 95.8 FL (80.0-97.0); Mean Platelet Volume 10.2 FL (9.5-12.2); NRBC Per 100 WBC 0 X 10*3/uL (0.00-0.01); Platelet Count 284 X 10*3/uL (140-440); RBC 4.53 X 10*6/uL (4.40-5.60); RDW 12.4 % (11.5-14.5); WBC 6.45 X 10*3/uL (4.50-10.00)
[2023-02-01 02:16] LABS: Chloride 98 mmol/L (96-109); Potassium 4.5 mmol/L (3.5-5.5); Sodium 138 mmol/L (135-145)
== END | disposition home or self-care (01) ==
LOC: LABWHC1 14:30
PROVIDERS: ATTEND Internal Medicine Interventional Cardiology
DX: Z01.812 Encounter for preprocedural laboratory examination (principal); R07.9 Chest pain, unspecified
CPT/HCPCS: 36415; 80051; 82565; 84520; 85027

== ENCOUNTER → 2023-02-05 | Day surgery (SDC) | payer OTHER ==
[2023-02-03 12:22] VITALS: BMI 30.2
[~2023-02-05] MED LIST changes: +ALPRAZolam 0.25 MG TAB PO PRN; +ALPRAZolam 0.5 MG TAB PO PRN; +ASPIRIN 325 MG TAB PO STA; +ATORVASTATIN 80 MG TAB PO STA; +HEPARIN SODIUM 1,000 UN/ML (10ML VL) IV ONE; +HEPARIN SODIUM 1,000 UN/ML (10ML VL) ONE; +HEPARIN SODIUM,PORCINE (1 ML) 2,500 UNIT in SODIUM CHLORIDE 0.9% 250 ML IRRIGATION PRN; +HEPARIN SODIUM,PORCINE 10,000 UNIT in SODIUM CHLORIDE 0.9% 1,000 ML IRRIGATION PRN; +IOPAMIDOL-370 100ML BTL INJ ONE; -LACTATED RINGERS 1,000 ML IV SCH; -LIDOCAINE 1% (10MG/ML) FOR IV START INTRADERMA PRN; +LIDOCAINE 1% INJ 10MG/ML (20 ML MDV) ONE; +LIDOCAINE 1% INJ 10MG/ML (20 ML MDV) SQ ONE; +MIDAZOLAM 2 MG/2 ML VIAL IVP ONE; +NITROGLYCERIN SL TABS 0.4 MG TAB SUBLINGUAL PRN; +RX INFO: IV CONTRAST WAS GIVEN 1 EACH MISC MISCELLANE PRN; +SODIUM CHLORIDE 0.9% 1,000 ML IV SCH; +SODIUM CHLORIDE 0.9% 1,000 ML in EMPTY BAG 1 BAG IV SCH; +VERAPAMIL 2.5 MG/ML 2 ML AMP ONE; +VERAPAMIL SYRINGE (5 MG/10 ML) INTRAARTER ONE
[2023-02-05 09:42] VITALS: RESP 18; TEMP 97.7
--- NOTE | 2023-02-05 10:45 | P.PCN ---
Date of Procedure: 02/05/23 Operative Findings: CARDIAC CATHETERIZATION PERFORMING PHYSICIAN: Elfego Ortiz MD, RPVI PROCEDURE PERFORMED: 1. Selective right and left coronary angiogram 2. Left heart catheterization 3. Ultrasound-guided access of the right radial artery INDICATION: The patient is a 63-year-old gentleman with CAD and prior stenting of the LAD as well as prior stenting of the OM of the left circumflex continues to have symptoms of chest discomfort when he was seen in the office recently. The symptoms of chest discomfort appeared to be an exertional and nonexertional. Beside that he was feeling tired and fatigued. He is known to have severe disease involving the diagonal across the stent in the LAD. He was brought today to undergo a heart catheterization. COMPLICATION: None APPROACH: Right radial artery LEVEL OF SEDATION: Moderate with a sedation length of 15 minutes PROCEDURE DESCRIPTION: After obtaining an informed consent, the patient was brought to cardiac manager cath lab. Local anesthesia was performed using lidocaine subcutaneously. The right radial artery was cannulated using Seldinger technique, the guidewire passed easily, following that we advanced a 5-Austrian sheath dilator assembly, the wire and dilator were removed and sheath was flushed. Following that, 2 mg of verapamil along with 5000 unit heparin were given. Selective right and left coronary angiogram using a 6-Austrian JR4 and JL 3.5 catheters. Following that we did left heart catheterization using 6-Austrian pigtail catheter. The procedure was completed there was no complication. SELECTIVE CORONARY ANGIOGRAM: The right coronary artery: Large caliber vessel and a dominant vessel. The RCA distally bifurcates into PDA and PLV branches. The PLV branch of the RCA has intermediate disease. In the past with did Doppler wire measurement and that came in to be nonischemic Left main: Is angiographically normal. Bifurcates into an LCx and LAD The left circumflex: Large caliber vessel none dominant vessel. The LCx proximally appears to have mild disease only. It gives rises into an OM1 which is a stented and the stent is patent. The mid left circumflex appeared to be normal and gives rises into a second and third obtuse marginal branch there appeared to be angiographically normal and the circumflex continue as a small-caliber vessel in the AV groove The left anterior descending artery: The proximal LAD is a stented and the stent is patent. The LAD proximally gives rises into a diagonal branch which is about 2.5 mm in diameter which has an ostial lesion. The diagonal was jailed by the LAD stent. The lesion appeared to be in the range of 70-80%. The mid and distal LAD appears to have mild disease only. HEMODYNAMICS: LVEDP was about 8 mmHg was no significant gradient across aortic valve CONCLUSION: 1. Patent stent in the proximal LAD. The first diagonal branch is jailed by the stent. The stenosis appears to be the same as before 2. Patent stent in the first obtuse marginal branch of the left circumflex 3. Intermediate disease involving the large PLV branch of the RCA. In the past we did iFR and that came in to be nonflow limiting POSTPROCEDURE MANAGEMENT: The patient's blood pressure was low throughout the procedure and his EDP was otherwise well. I'm going to stop the losartan. I would advise conservative medical approach at this point in the light of the finding from today appeared to be the same as before. We will follow-up with the patient as an outpatient.
[2023-02-05 13:09] VITALS: PULSE 56
[2023-02-05 14:11] VITALS: BP 100/64
== END ==
LOC: CATHCVL 09:10
PROVIDERS: ATTEND Internal Medicine Interventional Cardiology
DX: I25.10 Atherosclerotic heart disease of native coronary artery without angina pectoris (principal); I10 Essential (primary) hypertension; E78.5 Hyperlipidemia, unspecified; Z95.5 Presence of coronary angioplasty implant and graft; Z79.899 Other long term (current) drug therapy
CPT/HCPCS: 93458; C1769; C1894; J2250; J2001; J1644; Q9967

== ENCOUNTER → 2023-04-30 | Outpatient (CLI) | payer OTHER ==
[2023-04-30 16:30] LABS: HCT 46.3 % (39.0-53.0); HGB 16.3 gm/dL (13.0-17.5); MCH 33.4 pg (25.0-35.0); MCHC 35.1 g/dL (31.0-37.0); MCV 95.3 fL (80.0-100.0); Mean Platelet Volume 7.9; Platelet Count 217 k/uL (150-450); RBC 4.86 m/uL (4.30-5.90); RDW 13.6 % (11.5-15.5); WBC 7.6 k/uL (3.8-10.6)
[2023-05-01 02:54] LABS: Blood Urea Nitrogen 8.7 mg/dL (9.0-27.0); Carbon Dioxide 24.8 mmol/L (21.6-31.8); Chloride 103 mmol/L (96-109); Potassium 4.9 mmol/L (3.5-5.5); Sodium 141 mmol/L (135-145)
== END | disposition home or self-care (01) ==
LOC: LABPAT 14:12
PROVIDERS: ATTEND Internal Medicine Interventional Cardiology
DX: Z01.812 Encounter for preprocedural laboratory examination (principal); I25.10 Atherosclerotic heart disease of native coronary artery without angina pectoris
CPT/HCPCS: 80051; 82565; 84520; 85027

== ENCOUNTER → 2023-05-08 | Day surgery (SDC) | payer OTHER ==
[~2023-05-08] MED LIST changes: -ATORVASTATIN 80 MG TAB PO STA; -HEPARIN SODIUM 1,000 UN/ML (10ML VL) IV ONE; -HEPARIN SODIUM 1,000 UN/ML (10ML VL) ONE; -HEPARIN SODIUM,PORCINE (1 ML) 2,500 UNIT in SODIUM CHLORIDE 0.9% 250 ML IRRIGATION PRN; -HEPARIN SODIUM,PORCINE 10,000 UNIT in SODIUM CHLORIDE 0.9% 1,000 ML IRRIGATION PRN; -IOPAMIDOL-370 100ML BTL INJ ONE; -LIDOCAINE 1% INJ 10MG/ML (20 ML MDV) ONE; -LIDOCAINE 1% INJ 10MG/ML (20 ML MDV) SQ ONE; -MIDAZOLAM 2 MG/2 ML VIAL IVP ONE; -RX INFO: IV CONTRAST WAS GIVEN 1 EACH MISC MISCELLANE PRN; -SODIUM CHLORIDE 0.9% 1,000 ML IV SCH; -VERAPAMIL 2.5 MG/ML 2 ML AMP ONE; -VERAPAMIL SYRINGE (5 MG/10 ML) INTRAARTER ONE
== END ==
LOC: CATHCVL 09:31
PROVIDERS: ATTEND Internal Medicine Interventional Cardiology
DX: Z53.8 Procedure and treatment not carried out for other reasons (principal); I25.10 Atherosclerotic heart disease of native coronary artery without angina pectoris; Z95.5 Presence of coronary angioplasty implant and graft

== ENCOUNTER 2023-05-14 10:17 | Day surgery (SDC) | payer OTHER ==
[~2023-05-14 10:17] MED LIST changes: +ASPIRIN 325 MG TAB PO ONE; -ASPIRIN 325 MG TAB PO STA; +ATORVASTATIN 80 MG TAB PO ONE; -SODIUM CHLORIDE 0.9% 1,000 ML in EMPTY BAG 1 BAG IV SCH
[2023-05-14] MEDS ORDERED: SODIUM CHLORIDE 0.9% 1,000 ML IV ONE (10:36)
[2023-05-14] MEDS ORDERED: MIDAZOLAM 2 MG/2 ML VIAL IVP ONE (12:31)
[2023-05-14] MEDS ORDERED: LIDOCAINE 1% INJ 10MG/ML (30 ML VIAL-PF) SQ ONE (12:31)
[2023-05-14] MEDS ORDERED: HYDROmorphone 0.5 MG/0.5 ML SYRINGE IVP ONE (12:37)
[2023-05-14] MEDS: HEPARIN SODIUM 1,000 UN/ML (10ML VL) IV ONE ×2 (12:37→12:53)
[2023-05-14] MEDS ORDERED: SODIUM CHLORIDE 0.9% 500 ML 500 ML IV ONE (13:05)
[2023-05-14] MEDS ORDERED: NITROGLYCERIN 1000MCG/10ML SYRINGE INTRACORON ONE (13:10)
[2023-05-14] MEDS ORDERED: IOPAMIDOL-370 100ML BTL INJ ONE (13:29)
[2023-05-14] MEDS ORDERED: MAG HYDROX/AL HYDROX/SIMETH 30 ML CUP PO PRN (13:49)
[2023-05-14] MEDS ORDERED: NITROGLYCERIN SL TABS 0.4 MG TAB SUBLINGUAL PRN (13:49)
[2023-05-14] MEDS ORDERED: ATROPINE SULFATE 0.1 MG/ML 10ML SYRINGE IV PRN (13:49)
[2023-05-14] MEDS ORDERED: ZOLPIDEM 5 MG TAB PO PRN (13:49)
[2023-05-14] MEDS ORDERED: RX INFO: IV CONTRAST WAS GIVEN 1 EACH MISC MISCELLANE PRN (13:49)
--- NOTE | 2023-05-14 13:56 | P.PCN ---
Date of Procedure: 05/14/23 Operative Findings: PERCUTANEOUS CORONARY INTERVENTION Performing physician Elfego Ortiz M.D. Procedure Performed: 1. Successful balloon angioplasty of a large diagonal branch using 3.0 mm noncompliant balloon with an excellent angiographic results. 2. Successful balloon angioplasty of the mid LAD using 4.5 mm noncompliant balloon with an excellent angiographic result. 3. IVUS of the diagonal and LAD 4. Selective left coronary angiogram 5. Selective right common femoral artery angiogram and ultrasound guided access of the right common femoral are Indication: The patient is a pleasant 63-year-old gentleman with coronary artery disease and prior stenting of the LAD and OM1 in the setting of acute coronary syndrome and known critical disease involving a large diagonal branch of the LAD continues to be symptomatically in spite of maximize medical treatment with symptoms of angina. In the light of that he was brought today to undergo PTCA and/or stenting of the diagonal branch. Approach: Right common femoral artery Complications: None Level of Sedation: Moderate with a sedation length of 60 minutes Procedure Discussion: After obtaining an informed consent the patient was brought to the cardiac lab associate. The right common femoral artery was cannulated using puncture technique under ultrasound guidance the micro-rupture wire passed easily then I place a 7- British sheath over 035 wire and that was 11 cm sheath at the right common femoral artery. Subsequently anticoagulation was initiated using heparin with continuous ACT monitoring. I did engage the left main using EBU 3.75 guiding catheter and that was a 7-British guiding catheter in the light of using possible kissing stents or kissing balloon. After that I did wire the first diagonal branch using a whisper wire and the LAD using a run-through wire. Balloon angioplasty was performed for the diagonal using initially 1 mm balloon and subsequently 2 mm noncompliant balloon and after that 3 mm noncompliant balloon as well. An angiogram was performed and showed an excellent angiographic results for the diagonal. Because I was concerned about stent struts hanging in the LAD I decided to do intravascular imaging of the LAD and that showed that the LAD just distal to the diagonal takeoff appears to be not well expanded. I decided to post-dilate that stent using 4.5 mm noncompliant balloon which was inflated under 14 vaughn. An angiogram after that showed that the diagonal was pinched again with the disease appeared to be in the range of 70-80%. At that point I decided to go ahead and do kissing balloon inflation of the LAD/diagonal if that did not work possible bleeding a stenting of the diagonal and crushing the stent. I did kissing balloon inflation of the diagonal/LAD using 3.5 mm balloon for the LAD and 3 mm balloon for the diagonal. An angiogram after that showed excellent angiographic results was EDNA-3 flow in both the LAD and diagonal and good angiographic results. The procedure was completed was no complication. By the end I did selective right common femoral artery angiogram. The procedure was completed was no complication Postprocedure Management: 1. Continue dual antiplatelet therapy for at least 6 month 2. Aggressive cholesterol control 3. Risk factors modification
[2023-05-14] MEDS ORDERED: SODIUM CHLORIDE 0.9% 1,000 ML in EMPTY BAG 1 BAG IV SCH (14:00)
[2023-05-14] MEDS: SODIUM CHLORIDE 0.9% 1,000 ML in EMPTY BAG 1 BAG IV SCH ×2 (17:32→17:36)
[2023-05-14 20:27] VITALS: RESP 16
[2023-05-14] MEDS: METOPROLOL TARTRATE 50 MG TAB PO SCH (20:57)
[2023-05-14] MEDS ORDERED: ATORVASTATIN 80 MG TAB PO SCH (21:00)
[2023-05-14] MEDS ORDERED: PRAMIPEXOLE 0.125 MG TAB PO SCH (21:00)
[2023-05-14] MEDS ORDERED: LORATADINE 10 MG TAB PO SCH (21:00)
[2023-05-14] MEDS ORDERED: hydrOXYzine HCL 10 MG TAB PO SCH (21:00)
[2023-05-15 03:56] VITALS: TEMP 98.2
[2023-05-15 03:58] LABS: African American GFR (CKD) >90 (>60 ml/min/1.73 sqM); Non-African American GFR(CKD) >90 (>60 ml/min/1.73 sqM)
[2023-05-15] MEDS: SODIUM CHLORIDE 0.9% 1,000 ML in EMPTY BAG 1 BAG IV SCH ×2 (05:22→09:11)
[2023-05-15] MEDS ORDERED: HEPARIN SODIUM,PORCINE 10,000 UNIT in SODIUM CHLORIDE 0.9% 1,000 ML IRRIGATION PRN (07:00)
[2023-05-15] MEDS ORDERED: HEPARIN SODIUM,PORCINE (1 ML) 2,500 UNIT in SODIUM CHLORIDE 0.9% 250 ML IRRIGATION PRN (07:00)
[2023-05-15 08:19] VITALS: BP 147/81; PULSE 72
--- NOTE | 2023-05-15 08:21 | P.DS ---
Providers Attending physician: Elfego Ortiz Consults: 05/14/23 13:49 Consult Physician Routine Consulting Provider: [facility] Consult Reason/Comments: Post Interventional Patient Do you want consulting provider notified?: Already Contacted [facility] [place] Hospital Course: The patient is a pleasant 63 gentleman who underwent yesterday successful balloon angioplasty of the LAD and diagonal with a good angiographic results and was no complication from right groin approach. The patient was seen and evaluated this morning. He is asymptomatic and he is hemodynamically stable. The patient is going to be discharged home on dual antiplatelet therapy and he will be seen in the office Please note that the right groin is soft and nontender and with no bruises Plan - Discharge Summary Discharge Rx Participant: No New Discharge Prescriptions: Continue Prasugrel [Effient] 10 mg PO DAILY #90 tab Metoprolol Tartrate [Lopressor] 50 mg PO BID #60 tab Isosorbide Mononitrate [Isosorbide Mononitrate ER] 30 mg PO DAILY hydrOXYzine HCL 20 mg PO HS Loratadine [Claritin] 10 mg PO HS Pramipexole [Mirapex] 0.125 mg PO HS Atorvastatin [Lipitor] 80 mg PO HS #90 tab Aspirin 81 mg PO DAILY Potassium Gluconate 99 mg PO DAILY Cholecalciferol [Vitamin D3 (125 Mcg = 5000 Iu)] 125 mcg PO DAILY Discharge Medication List Pramipexole [Mirapex] 0.125 mg PO HS 10/02/22 [History] Atorvastatin [Lipitor] 80 mg PO HS #90 tab 10/03/22 [Rx] Prasugrel [Effient] 10 mg PO DAILY #90 tab 10/03/22 [Rx] Metoprolol Tartrate [Lopressor] 50 mg PO BID #60 tab 10/07/22 [Rx] Isosorbide Mononitrate [Isosorbide Mononitrate ER] 30 mg PO DAILY 12/23/22 [History] Aspirin 81 mg PO DAILY 02/05/23 [History] Cholecalciferol [Vitamin D3 (125 Mcg = 5000 Iu)] 125 mcg PO DAILY 05/02/23 [History] Loratadine [Claritin] 10 mg PO HS 05/02/23 [History] Potassium Gluconate 99 mg PO DAILY 05/02/23 [History] hydrOXYzine HCL 20 mg PO HS 05/02/23 [History] Follow up Appointment(s)/Referral(s): Elfego Ortiz MD [STAFF PHYSICIAN] - 05/21/23 3:45 pm
[2023-05-15] MEDS ORDERED: CHOLECALCIFEROL 125 MCG (5000 IU) TABLET PO SCH (09:00)
[2023-05-15] MEDS ORDERED: PRASUGREL 10 MG TAB PO SCH (09:00)
[2023-05-15] MEDS ORDERED: ISOSORBIDE MONONITRATE ER 30 MG TAB.ER.24H PO SCH (09:00)
[2023-05-15] MEDS ORDERED: POTASSIUM CHLORIDE ER 10 MEQ TAB.ER.PRT PO SCH (09:00)
[2023-05-15] MEDS ORDERED: ASPIRIN 81 MG PO SCH (09:00)
[2023-05-15] MEDS: METOPROLOL TARTRATE 50 MG TAB PO SCH (09:05)
== END 2023-05-15 13:00 | disposition home or self-care (01) ==
LOC: CATHCVL 10:17 → 6NMEDSUR 13:27 → CATHCVL 05-15 13:00
PROVIDERS: ATTEND Internal Medicine Interventional Cardiology
DX: I25.10 Atherosclerotic heart disease of native coronary artery without angina pectoris (principal); Z95.5 Presence of coronary angioplasty implant and graft; Z79.02 Long term (current) use of antithrombotics/antiplatelets; Z79.82 Long term (current) use of aspirin; Z79.899 Other long term (current) drug therapy
CPT/HCPCS: 92978; 92979; 92920; 92921; 76937; 82565; C1769 ×4; C1887; C1894; C1753; C1725 ×5; J2250; J2001; J1644; J1170; Q9967; J2305

== ENCOUNTER 2023-07-09 17:36 | Inpatient (IN) | payer OTHER ==
[2023-07-09 18:09] LABS: Basophils % (A) 1 %; Eosinophils # (A) 0.1 k/uL (0-0.7); Eosinophils % (A) 2 %; HCT 44.6 % (39.0-53.0); HGB 15.5 gm/dL (13.0-17.5); Lymphocytes # (A) 1.2 k/uL (1.0-4.8); Lymphocytes % (A) 17 %; MCH 33.4 pg (25.0-35.0); MCHC 34.9 g/dL (31.0-37.0); MCV 95.9 fL (80.0-100.0); Mean Platelet Volume 7.9; Monocytes # (A) 0.4 k/uL (0-1.0); Monocytes % (A) 6 %; Neutrophils # (A) 4.8 k/uL (1.3-7.7); Neutrophils % (A) 72 %; Platelet Count 224 k/uL (150-450); RBC 4.65 m/uL (4.30-5.90); WBC 6.7 k/uL (3.8-10.6)
[2023-07-09 18:15] LABS: ALT 99 U/L (4-49); AST 75 U/L (17-59); African American GFR (CKD) >90 (>60 ml/min/1.73 sqM); Albumin 4.4 g/dL (3.5-5.0); Alkaline Phosphatase 71 U/L (38-126); Anion Gap 11 mmol/L; Blood Urea Nitrogen 12 mg/dL (9-20); Calcium 8.6 mg/dL (8.4-10.2); Carbon Dioxide 23 mmol/L (22-30); Chloride 105 mmol/L (98-107); Glucose 117 mg/dL (74-99); Magnesium 1.8 mg/dL (1.6-2.3); Non-African American GFR(CKD) >90 (>60 ml/min/1.73 sqM); Potassium 3.6 mmol/L (3.5-5.1); Sodium 139 mmol/L (137-145); Total Bilirubin 1.4 mg/dL (0.2-1.3); Total Protein 6.6 g/dL (6.3-8.2)
[2023-07-09 18:22] LABS: INR 1.2 (<1.2); Partial Thromboplastin Time 25.9 sec (22.0-30.0); Prothrombin Time 12.4 sec (10.0-12.5)
--- NOTE | 2023-07-09 18:26 | XR ---
EXAMINATION TYPE: XR chest 2V DATE OF EXAM: 07/09/2023 6:11 PM CLINICAL INDICATION:Male, 63 years old with history of Chest Pain; [facility] COMPARISON: 10/04/2022 TECHNIQUE: XR chest 2V. Frontal and lateral views of the chest.. FINDINGS: Lines/Tubes/Devices: No indwelling lines are seen. Heart/mediastinum: Heart size is normal. Mediastinum appears normal. Pulmonary vascularity appears slightly increased Lungs/Pleura: There is no evidence of pleural effusion, focal consolidation, or pneumothorax. Musculoskeletal: No acute osseous abnormality demonstrated in the limits of the exam. Other findings: None. IMPRESSION: Minimal pulmonary vascular congestion. Otherwise no acute cardiopulmonary abnormality.
--- NOTE | 2023-07-09 19:52 | ED ---
Chest Pain HPI - General Chief Complaint: Chest Pain Stated Complaint: Chest pain, SOB, nausea Time Seen by Provider: 07/09/23 19:21 Source: patient Mode of arrival: ambulatory Limitations: no limitations - History of Present Illness Initial Comments: This patient is a 63-year-old man who presents to have evaluation for chest pain. He states that he had gone to his physician's office today describes some pains that he has been having for the past 2 weeks and then was sent here to have further evaluation. The patient states is somewhat similar to symptoms he was having prior to his last angioplasty. The patient notes that the pains are sometimes brought on by exertion and are sometimes accompanied by nausea and vomiting. He indicates the left chest and also the substernal area. Currently not having symptoms. MD Complaint: chest pain -: week(s) Onset: during rest, during exertion Pain Location: substernal, left chest Pain Radiation: none Severity: moderate Quality: aching Consistency: intermittent, now resolved Improves With: nothing Worsens With: exertion Anginal Symptoms: nausea Treatments Prior to Arrival: none - Related Data Home Medications Medication Instructions Recorded Confirmed Pramipexole [Mirapex] 0.25 mg PO HS 10/02/22 07/09/23 Aspirin 81 mg PO DAILY 02/05/23 07/09/23 Cholecalciferol [Vitamin D3 (125 125 mcg PO DAILY 05/02/23 07/09/23 Mcg = 5000 Iu)] Potassium Gluconate 99 mg PO DAILY 05/02/23 07/09/23 hydrOXYzine HCL 20 mg PO HS 05/02/23 07/09/23 Isosorbide Mononitrate ER [Imdur] 60 mg PO DAILY 07/09/23 07/09/23 Previous Rx's Medication Instructions Recorded Atorvastatin [Lipitor] 80 mg PO HS #90 tab 10/03/22 Prasugrel [Effient] 10 mg PO DAILY #90 tab 10/03/22 Metoprolol Tartrate [Lopressor] 50 mg PO BID #60 tab 10/07/22 Metoclopramide [Reglan] 10 mg PO ACHS 30 Days #120 tab 07/11/23 Pantoprazole [Protonix] 40 mg PO AC-BRKFST 60 Days #60 tab 07/11/23 Allergies Allergy/AdvReac Type Severity Reaction Status Date / Time No Known Allergies Allergy Verified 07/09/23 20:15 Review of Systems ROS Statement: Those systems with pertinent positive or pertinent negative responses have been documented in the HPI. ROS Other: All systems not noted in ROS Statement are negative. Constitutional: Denies: fever, chills, weakness Respiratory: Denies: cough, dyspnea Cardiovascular: Reports: chest pain. Denies: palpitations, orthopnea, edema, syncope Gastrointestinal: Reports: as per HPI, nausea, vomiting. Denies: abdominal pain, diarrhea, hematemesis, melena, hematochezia Genitourinary: Denies: dysuria, hematuria Musculoskeletal: Denies: back pain Skin: Denies: rash Neurological: Denies: headache, weakness EKG Findings - EKG Results: EKG: interpreted by HAMZAH, sinus rhythm (Rate 79 bpm), normal axis, normal QRS - Blocks, Gillespie, Hypertrophy, ST Abn: Repolarization changes or abnormalities: nonspecific abnormality, ST segment, and/or T wave Past Medical History Past Medical History: Chest Pain / Angina, Hyperlipidemia, Hypertension, Sleep Apnea/CPAP/BIPAP Additional Past Medical History / Comment(s): cpap, this procedure was rescheduled History of Any Multi-Drug Resistant Organisms: None Reported Past Surgical History: Appendectomy, Heart Catheterization With Stent, Joint Replacement Additional Past Surgical History / Comment(s): stent to LAD 10/04 2019 coloplast prosthetic female implant, knee surg. x3 Past Anesthesia/Blood Transfusion Reactions: No Reported Reaction Date of Last Stent Placement:: 10/02/22 Past Psychological History: No Psychological Hx Reported Smoking Status: Never smoker Past Alcohol Use History: Occasional Past Drug Use History: Marijuana - Past Family History Father Family Medical History: Chest Pain / Angina, Coronary Artery Disease (CAD), Myocardial Infarction ([place]) Mother Family Medical History: No Reported History General Exam Limitations: no limitations General appearance: alert, in no apparent distress Head exam: Present: atraumatic, normocephalic Eye exam: Present: normal appearance. Absent: scleral icterus, conjunctival injection ENT exam: Present: normal oropharynx Neck exam: Present: normal inspection Respiratory exam: Present: normal lung sounds bilaterally. Absent: respiratory distress, wheezes, rales, rhonchi, stridor, chest wall tenderness, accessory muscle use Cardiovascular Exam: Present: regular rate, normal rhythm, normal heart sounds. Absent: systolic murmur, diastolic murmur, rubs, gallop GI/Abdominal exam: Present: soft. Absent: distended, tenderness, guarding, rebound Extremities exam: Present: normal inspection, normal capillary refill. Absent: pedal edema, calf tenderness Back exam: Present: normal inspection. Absent: CVA tenderness (R), CVA tenderness (L) Neurological exam: Present: alert Skin exam: Present: warm, dry, intact, normal color. Absent: rash Course Vital Signs 07/09/23 07/09/23 07/09/23 17:37 20:14 21:00 Temperature 98.2 F Pulse Rate 82 78 77 Respiratory 18 16 16 Rate Blood Pressure 152/91 126/91 105/72 O2 Sat by Pulse 98 94 L 95 Oximetry 07/09/23 07/10/23 07/10/23 22:28 00:51 02:23 Temperature Pulse Rate 75 67 59 L Respiratory 16 16 16 Rate Blood Pressure 102/77 120/80 97/54 O2 Sat by Pulse 96 98 96 Oximetry 07/10/23 07/10/23 07/10/23 05:12 05:49 06:38 Temperature Pulse Rate 64 67 64 Respiratory 16 16 16 Rate Blood Pressure 107/93 101/65 O2 Sat by Pulse 94 L 93 L Oximetry 07/10/23 07/10/23 07/10/23 10:02 13:00 16:12 Temperature Pulse Rate 63 67 67 Respiratory 16 18 18 Rate Blood Pressure 107/71 103/74 108/72 O2 Sat by Pulse 99 99 100 Oximetry Chest Pain MDM - MDM The patient had chest x-ray that I interpreted as negative for acute infiltrate, pneumothorax, congestive heart failure. The patient had abdominal ultrasound that I interpreted as not showing enlargement of the common bile duct or acute cholecystitis. Was pt. sent in by a medical professional or institution (, PA, POULTRY PROCESS WORKER, urgent care, hospital, or prison...) When possible be specific @ -[No] Did you speak to anyone other than the patient for history (EMS, parent, family, police, friend...)? What history was obtained from this source @ -[No] Did you review nursing and triage notes (agree or disagree)? Why? @ -[I reviewed and agree with nursing and triage notes] Were old charts reviewed (outside hosp., previous admission, EMS record, old EKG, old radiological studies, urgent care reports/EKG's, prison records)? Report findings @ -[No old charts were reviewed] Differential Diagnosis (chest pain, altered mental status, abdominal pain women, abdominal pain men, vaginal bleeding, weakness, fever, dyspnea, syncope, headache, dizziness, GI bleed, back pain, seizure, CVA, palpatations, mental health, musculoskeletal)? @ -[Differential Chest Pain: Stable Angina, Unstable Angina, STEMI, NSTEMI Aortic Dissection, Pneumothorax, Musculoskeletal, Esophageal Spasm GERD, Cholecystitis, Pancreatitis, Zoster, this is not meant to be an all-inclusive list. EKG interpreted by me (3pts min.). @ -[I interpreted as above] X-rays interpreted by me (1pt min.). @ -[I interpreted as above CT interpreted by me (1pt min.). @ -[None done] U/S interpreted by me (1pt. min.). @ -[I interpreted as above What testing was considered but not performed or refused? (CT, X-rays, U/S, labs)? Why? @ -[None] What meds were considered but not given or refused? Why? @ -[None] Did you discuss the management of the patient with other professionals (professionals i.e. , PA, POULTRY PROCESS WORKER, lab, RT, psych nurse, social contact worker, poultry process worker, teacher, infantry weapons officer, rn field case manager)? Give summary @ -Case discussed with admitting physician and treatment recommendations are incorporated Was smoking cessation discussed for >3mins.? @ -[No] Was critical care preformed (if so, how long)? @ -[No] Were there social determinants of health that impacted care today? How? (Homelessness, low income, unemployed, alcoholism, drug addiction, transportation, low edu. Level, literacy, decrease access to med. care, custodial, rehab)? @ -[No] Was there de-escalation of care discussed even if they declined (Discuss DNR or withdrawal of care, Hospice)? DNR status @ -[No] What co-morbidities impacted this encounter? (DM, HTN, Smoking, COPD, CAD, Cancer, CVA, ARF, Chemo, Hep., AIDS, mental health diagnosis, sleep apnea, morbid obesity)? @ -[hypertension, hyperlipidemia, previous stent Was patient admitted / discharged? Hospital course, mention meds given and route, prescriptions, significant lab abnormalities, going to OR and other pertinent info. @ -[The patient is 63-year-old man having chest pains. Workup for possible biliary component is negative. Given the patient's risk factors will admit to have serial cardiac enzymes and telemetry monitoring. Undiagnosed new problem with uncertain prognosis? @ -[No] Drug Therapy requiring intensive monitoring for toxicity (Heparin, Nitro, In sulin, Cardizem)? @ -[No] Were any procedures done? @ -[No] Diagnosis/symptom? @ -[Acute chest pain Acute, or Chronic, or Acute on Chronic? @ -[Acute Uncomplicated (without systemic symptoms) or Complicated (systemic symptoms)? @ -[Uncomplicated Side effects of treatment? @ -[No] Exacerbation, Progression, or Severe Exacerbation? @ -[No] Poses a threat to life or bodily function? How? (Chest pain, [place], [place], pneumonia, PE, COPD, DKA, ARF, appy, cholecystitis, CVA, Diverticulitis, Homicidal, Suicidal, threat to staff... and all critical care pts) @ -[Low risk but requires further evaluation Disposition Clinical Impression: Chest pain Disposition: ADMITTED IP TO THIS HOSP Condition: Stable Is patient prescribed a controlled substance at d/c from ED?: No
--- NOTE | 2023-07-09 21:08 | US ---
EXAMINATION TYPE: US abdomen limited DATE OF EXAM: 07/09/2023 COMPARISON: 10/06/22 CLINICAL INDICATION: Male, 63 years old with history of attention RUQ; Nausea x weeks TECHNIQUE: Multiple sonographic images of the right upper quadrant are obtained. FINDINGS: EXAM MEASUREMENTS: Liver Length: 13.1 cm Gallbladder Wall: 0.26 cm CBD: 0.46 cm Right Kidney: 11.9 x 4.8 x 5.2 cm ENGINEER SERGEANT NOTES: Pancreas: Parts seen appear wnl Liver: Heterogeneous and inc attenuation Gallbladder: wnl Evidence for sonographic Alvarez's sign: No CBD: wnl Right Kidney: wnl IMPRESSION: 1. No acute sonographic abnormality in the right upper quadrant. 2. The liver is echogenic suggesting diffuse liver disease, likely steatosis. Differential diagnosis includes artifact on the basis of body habitus. The finding does limit evaluation of the liver paren chyma.
[2023-07-09 21:11] LABS: Amylase 52 U/L (30-110); Lipase 117 U/L (23-300)
[2023-07-09] MEDS ORDERED: NITROGLYCERIN SL TABS 0.4 MG TAB SUBLINGUAL PRN (22:38)
[2023-07-09] MEDS: hydrOXYzine HCL 10 MG TAB PO SCH (23:17)
[2023-07-09] MEDS: PRAMIPEXOLE 0.25 MG TAB PO SCH (23:17)
[2023-07-09] MEDS: METOPROLOL TARTRATE 50 MG TAB PO SCH (23:17)
[2023-07-09] MEDS: ATORVASTATIN 80 MG TAB PO SCH (23:17)
--- NOTE | 2023-07-10 02:30 | P.HPIM ---
History of Present Illness H&P Date: 07/09/23 Patient is a 63-year-old male with a PMH of CAD status post 2 stents, hypertension, and hyperlipidemia who presents to the emergency room with complaints of chest discomfort. Patient reports that over the past 2 weeks, he has been experiencing intermittent diffuse chest discomfort, aching in nature, somewhat worsened with exertion, nonpleuritic, with no other alleviating or exacerbating features. He does report some associated nausea with vomiting but denied experiencing associated shortness of breath, diaphoresis, or dizziness. Reports being pain-free at the time of interview. Denied experiencing fever, chills, cough, abdominal pain, diarrhea. Chest x-ray in the emergency room revealed minimal pulmonary vascular congestion with EKG showing sinus rhythm at 79 bpm with poor R wave progression and T wave inversion in lead III as reviewed by me. Right upper quadrant ultrasound revealed hepatic steatosis. Laboratory evaluation was remarkable for troponin less than 0.012, total bilirubin 1.4, AST 75, ALT 99, glucose 117. ED documentation reviewed and case discussed with ED provider. Review of systems: Pertinent positives and negatives as discussed in HPI, a complete review of systems was performed and all other systems are negative. Physical examination: Vital signs reviewed General: non toxic, no distress, appears at stated age, obese Derm: no unusual rashes/lesions, warm Head: atraumatic, normocephalic, symmetric Eyes: EOMI, no lid lag, anicteric sclera, pupils equal round reactive to light ENT: Nose and ears atraumatic Neck: No cervical lymphadenopathy, trachea midline, supple Mouth: no lip lesion, mucus membranes moist Cardiovascular: S1S2 reg, no murmur, positive dorsalis pedis pulse bilateral, no edema Lungs: CTA bilateral, no rhonchi, no rales, no accessory muscle use Abdominal: soft, nontender to palpation, no guarding Ext: muscle strength 5 out of 5 in all 4 extremities grossly, no gross muscle atrophy, no contractures, Neuro: CN II-XI grossly intact, no gross focal neuro deficits Psych: Alert, oriented, appropriate affect Assessment: Chest pain, rule out ACS Abnormal LFTs, unclear etiology Chronic conditions: Hypertension, hyperlipidemia Imaging: Chest x-ray in the emergency room revealed minimal pulmonary vascular congestion with EKG showing sinus rhythm at 79 bpm with poor R wave progression and T wave inversion in lead III as reviewed by me. Right upper quadrant ultrasound revealed hepatic steatosis. Data Review: Laboratory evaluation was remarkable for troponin less than 0.012, total bilirubin 1.4, AST 75, ALT 99, glucose 117. Plan: Cardiology consult Cardiac monitoring Trend troponin Continue with aspirin and statin Monitor LFTs Continue with home antihypertensives DVT prophylaxis: Lovenox subcu The patient is admitted with an anticipated less than 2 midnight stay for evaluation of chest pain CODE STATUS: Full Code Discussed with: Patient Anticipated discharge place: Home Past Medical History Past Medical History: Chest Pain / Angina, Hyperlipidemia, Hypertension, Sleep Apnea/CPAP/BIPAP Additional Past Medical History / Comment(s): cpap, this procedure was rescheduled History of Any Multi-Drug Resistant Organisms: None Reported Past Surgical History: Appendectomy, Heart Catheterization With Stent, Joint Replacement Additional Past Surgical History / Comment(s): stent to LAD 10/04 2018 coloplast prosthetic female implant, knee surg. x3 Past Anesthesia/Blood Transfusion Reactions: No Reported Reaction Date of Last Stent Placement:: 10/02/22 Past Psychological History: No Psychological Hx Reported Smoking Status: Never smoker Past Alcohol Use History: Occasional Past Drug Use History: Marijuana - Past Family History Father Family Medical History: Chest Pain / Angina, Coronary Artery Disease (CAD), Myocardial Infarction ([place]) Mother Family Medical History: No Reported History Medications and Allergies Home Medications Medication Instructions Recorded Confirmed Type Pramipexole [Mirapex] 0.25 mg PO HS 10/02/22 07/09/23 History Atorvastatin [Lipitor] 80 mg PO HS #90 tab 10/03/22 07/09/23 Rx Prasugrel [Effient] 10 mg PO DAILY #90 tab 10/03/22 07/09/23 Rx Metoprolol Tartrate [Lopressor] 50 mg PO BID #60 tab 10/07/22 07/09/23 Rx Aspirin 81 mg PO DAILY 02/05/23 07/09/23 History Cholecalciferol [Vitamin D3 (125 125 mcg PO DAILY 05/02/23 07/09/23 History Mcg = 5000 Iu)] Potassium Gluconate 99 mg PO DAILY 05/02/23 07/09/23 History hydrOXYzine HCL 20 mg PO HS 05/02/23 07/09/23 History Isosorbide Mononitrate ER [Imdur] 60 mg PO DAILY 07/09/23 07/09/23 History Allergies Allergy/AdvReac Type Severity Reaction Status Date / Time No Known Allergies Allergy Verified 07/09/23 20:15 Physical Exam Vitals: Vital Signs Temp Pulse Resp BP Pulse Ox 07/09/23 22:28 75 16 102/77 96 07/09/23 21:00 77 16 105/72 95 07/09/23 20:14 78 16 126/91 94 L 07/09/23 17:37 98.2 F 82 18 152/91 98 Intake and Output 07/09/23 07/09/23 07/10/23 14:59 22:59 06:59 Other: Weight 95.254 kg Results CBC & Chem 7: 07/09/23 17:59 07/09/23 17:59 Labs: Abnormal Lab Results - Last 24 Hours (Table) 07/09/23 07/09/23 Range/Units 17:59 17:59 INR 1.2 H (<1.2) Glucose 117 H (74-99) mg/dL Total Bilirubin 1.4 H (0.2-1.3) mg/dL AST 75 H (17-59) U/L ALT 99 H (4-49) U/L
[2023-07-10 04:24] LABS: ALT 80 U/L (4-49); AST 56 U/L (17-59); African American GFR (CKD) >90 (>60 ml/min/1.73 sqM); Albumin 3.6 g/dL (3.5-5.0); Albumin/Globulin Ratio 1.6; Alkaline Phosphatase 67 U/L (38-126); Anion Gap 7 mmol/L; Blood Urea Nitrogen 12 mg/dL (9-20); Carbon Dioxide 23 mmol/L (22-30); Chloride 107 mmol/L (98-107); Globulin 2.2 g/dL; Glucose 102 mg/dL (74-99); Non-African American GFR(CKD) >90 (>60 ml/min/1.73 sqM); Potassium 3.2 mmol/L (3.5-5.1); Sodium 137 mmol/L (137-145); Total Bilirubin 1.1 mg/dL (0.2-1.3); Total Protein 5.8 g/dL (6.3-8.2)
[2023-07-10 04:29] LABS: Calcium 6.3 mg/dL (8.4-10.2)
[2023-07-10] MEDS: CALCIUM GLUCONATE IN NACL 2 GM in SALINE 1 100ML.BAG IVPB ONE (05:39)
[2023-07-10] MEDS: POTASSIUM CHLORIDE ER 20 MEQ TAB.ER PO STA (05:51)
[2023-07-10] MEDS: PRASUGREL 10 MG TAB PO SCH (08:22)
[2023-07-10] MEDS: ASPIRIN 81 MG PO SCH (08:22)
[2023-07-10] MEDS: ENOXAPARIN 40 MG/0.4 ML SYRINGE SQ SCH (08:22)
[2023-07-10] MEDS: ISOSORBIDE MONONITRATE ER 60 MG TAB.ER.24H PO SCH (08:29)
[2023-07-10] MEDS: CHOLECALCIFEROL 125 MCG (5000 IU) TABLET PO SCH (08:29)
[2023-07-10] MEDS ORDERED: ASPIRIN 325 MG TAB PO SCH (09:00)
[2023-07-10] MEDS ORDERED: NON FORMULARY DRUG (Potassium Gluconate [Potassium Gluconate] 99 MG Tablet) PO SCH (09:00)
[2023-07-10 09:04] LABS: Chol/HDL Ratio 2.97 Ratio; LDL Cholesterol,Calculated 16.5 mg/dL (0.0-131.0)
[2023-07-10] MEDS: ISOSORBIDE MONONITRATE ER 30 MG TAB.ER.24H PO ONE (09:20)
[2023-07-10] MEDS ORDERED: RANOLAZINE 500 MG TAB.ER.12H PO SCH (09:30)
--- NOTE | 2023-07-10 09:38 | P.PN ---
Subjective Progress Note Date: 07/10/23 Hospital course: Patient is a very pleasant 63-year-old male with a past medical history of CAD status post stenting, hypertension, hyperlipidemia, and obstructive sleep apnea. He presented to the emergency department on 07/09/2023 with a chief complaint of chest pain. Upon arrival to the emergency department, patient underwent evaluation. Vital signs upon arrival show blood pressure 152/91, heart rate 82, respiratory rate 18, temp 98.2 F, and SpO2 of 98% on room air. EKG completed showing normal sinus rhythm at 79 bpm. Chest x-ray completed revealing mild pulmonary vascular congestion otherwise negative for acute cardiopulmonary process. Abdominal ultrasound completed showing echogenic liver suggestive of diffuse liver disease, likely steatosis versus artifact on the basis of body habitus. Labs were completed and reviewed. CBC unremarkable. Coagulation profile showing elevated INR of 1.2. BMP unremarkable. Blood glucose 117. Liver profile showing transaminitis with elevated total bili of 1.4, AST of 75, and ALT of 99 with alkaline phosphatase of 71. Troponin was negative at less than 0.012. Amylase and lipase normal findings. Patient admitted under services with consultation to cardiology. Troponins trended overnight all negative at less than 0.012 x 3 draws. Physical exam: Vital signs reviewed and stable. General: Nontoxic, no distress and appears stated age. Derm: Skin warm and dry, normal coloration for ethnicity. Head: Atraumatic, normocephalic and symmetric. Eyes: EOMs intact, no lid lag, and anicteric sclera Mouth: no lip lesions, mucus membranes moist Cardiovascular: regular rate and rhythm with normal S1S2, no murmur, positive posterior tibial pulses bilaterally, and cap refill < 2 seconds. Lungs: Respirations even, regular, and unlabored on room air. Lungs CTA bilaterally, no rhonchi, no rales, no wheezing, and no accessory muscle usage. Abdominal: soft, nontender to palpation, no guarding, no appreciable org anomegaly Ext: ROM intact. No gross muscle atrophy, no edema, no contractures Neuro: Speech clear, face symmetrical and CN II-XII grossly intact with no noted focal neuro deficits Psych: Alert and oriented to person, place, time, and situation. Appropriate and pleasant affect. Assessment and Plan of Care: Chest pain, acute coronary event ruled out Gastroesophageal reflux. Intractable nausea History of CAD status post stenting Hypertension Hyperlipidemia Obstructive sleep apnea -Cardiology following, discussed plan of care at bedside with resident care associate and cardiac HIGH SPEED OPERATOR. -Telemetry monitoring -Troponins were negative at less than 0.012 x 3 draws. -Echocardiogram to be completed. -Cardiac diet -Order placed for GI cocktail x 1 dose and patient started on Protonix 40 mg daily as well as Reglan 10 mg every 6 hours for intractable nausea. -Patient would benefit from outpatient evaluation by resident care associate for possible EGD. -Patient to continue daily medication regimen with aspirin 81 mg daily, atorvastatin 80 mg nightly, metoprolol 50 mg twice daily, and Effient 10 mg daily. Cardiology started patient on Imdur 90 mg daily. -Lipid profile unremarkable with exception of low HDL of 22.90. Data and imaging reviewed: Labs completed and reviewed. Troponins were negative at less than 0.012 x 3 draws. Repeat morning labs completed. BMP unremarkable. Transaminitis improving with total bili of 1.2, AST of 63, and ALT of 83. Lipid profile unremarkable with exception of low HDL of 22.90. Vital signs reviewed and stable. Blood pressure 107/71, heart rate 63, respiratory rate 16, and SpO2 of 99% on room air. CODE STATUS: Full code DVT prophylaxis: Lovenox Anticipated discharge date: Likely within the next [address]: Home Patient was seen independently by Nurse Pracitioner. This document was prepared using [employer] dictation software. Please allow for errors in skin care consultant, while rare they do occur. De Fitzpatrick HIGH SPEED OPERATOR rendered care for this patient independently, reviewed the findings and plan as documented in the note above. I did not physically speak with or examine the patient on this date. Objective - Vital Signs Vital signs: Vital Signs Temp 98.2 F 07/09/23 17:37 Pulse 64 07/10/23 06:38 Resp 16 07/10/23 06:38 BP 101/65 07/10/23 06:38 Pulse Ox 93 L 07/10/23 06:38 FiO2 Intake & Output 07/09/23 07/10/23 07/10/23 18:59 06:59 18:59 Weight 95.254 kg - Labs CBC & Chem 7: 07/09/23 17:59 07/10/23 09:33 Labs: Abnormal Lab Results - Last 24 Hours (Table) 03/27/24 03/27/24 03/28/24 Range/Units 17:59 17:59 03:48 INR 1.2 H (<1.2) Potassium 3.2 L (3.5-5.1) mmol/L Glucose 117 H 102 H (74-99) mg/dL Calcium 6.3 L* (8.4-10.2) mg/dL Total Bilirubin 1.4 H (0.2-1.3) mg/dL AST 75 H (17-59) U/L ALT 99 H 80 H (4-49) U/L Total Protein 5.8 L (6.3-8.2) g/dL
[2023-07-10] MEDS: PANTOPRAZOLE 40 MG TABLET PO SCH (10:07)
[2023-07-10] MEDS: MAG HYDROX/AL HYDROX/SIMETH 30 ML, HYOSCYAMINE ELIXIR 10 ML, LIDOCAINE VISCOUS 10 ML PO ONE (10:07)
[2023-07-10 10:34] LABS: ALT 83 U/L (4-49); AST 63 U/L (17-59); African American GFR (CKD) >90 (>60 ml/min/1.73 sqM); Albumin 3.9 g/dL (3.5-5.0); Albumin/Globulin Ratio 1.9; Alkaline Phosphatase 74 U/L (38-126); Anion Gap 9 mmol/L; Blood Urea Nitrogen 10 mg/dL (9-20); Calcium 8.9 mg/dL (8.4-10.2); Carbon Dioxide 23 mmol/L (22-30); Chloride 106 mmol/L (98-107); Globulin 2.1 g/dL; Glucose 126 mg/dL (74-99); Non-African American GFR(CKD) >90 (>60 ml/min/1.73 sqM); Potassium 3.7 mmol/L (3.5-5.1); Sodium 138 mmol/L (137-145); Total Bilirubin 1.2 mg/dL (0.2-1.3)
--- NOTE | 2023-07-10 10:49 | P.CRDCN ---
History of Present Illness History of present illness: HISTORY OF PRESENT ILLNESS: This is a 63-year-old male with a past medical history significant for hypertension, hyperlipidemia, coronary artery disease, and daily alcohol use. Patient follows in the office with Dr. Ortiz. We have been asked to see the patient in consultation for chest pain. Patient examined at the bedside in the emergency room. Patient underwent cardiac catheterization on 05/14/[address] Ortiz with balloon angioplasty of diagonal branch and mid LAD. The patient was seen in the office post procedure and continued to have some residual chest discomfort. His Imdur was increased from 30 mg to 60 mg daily. The patient states after his Imdur was increased he was feeling better for a while but now his chest pain has started to recur. He states over the past few weeks he has been having chest discomfort. He states it is usually on the left side of his chest however this morning it is on the right side of his chest. He states the pain is usually worse with exertion. He also reports a decreased appetite for the past 2 weeks. He reports nausea with daily episodes of vomiting. He also reports having episodes of diarrhea. Patient also reports daily alcohol use and drinks 1-2 drinks daily of either beer or wine. He is a non-smoker. DIAGNOSTICS: - EKG reveals sinus mechanism with nonspecific ST-T wave changes. - Chest xray minimal pulmonary vascular congestion. Otherwise no acute cardiopulmonary abnormality noted.. - Laboratory data: WBC 6.7. Hemoglobin 15.5. Platelet count 224. Sodium 138. Potassium 3.7. BUN 10. Creatinine 0.81. Troponin negative x 3. - Current home cardiac medications include metoprolol tartrate 50 mg twice a day, aspirin 81 mg daily, Effient 10 mg daily, Imdur 60 mg daily, and atorvastatin 80 mg at night. - Most recent echocardiogram obtained in September 2022 revealing ejection fraction 55 to 60%, mild MR - Cardiac catheterization history: 05/14/[address] Ortiz with balloon angioplasty of diagonal branch and mid LAD. REVIEW OF SYSTEMS: At the time of my exam: CONSTITUTIONAL: Denies fever or chills. HEENT: Denies blurred vision, vision changes, or eye pain. Denies hemoptysis CARDIOVASCULAR: Denies chest pain. Denies orthopnea. Denies PND. Denies palpitations RESPIRATORY: Denies shortness of breath. GASTROINTESTINAL: Denies abdominal pain. Denies nausea or vomiting. HEMATOLOGIC: Denies bleeding disorders. GENITOURINARY: Denies any blood in urine. SKIN: Denies pruitis. Denies rash. PHYSICAL EXAM: VITAL SIGNS: Reviewed. GENERAL: Well-developed in no acute distress. HEENT: Head is normocephalic. Pupils are equal, round. Sclerae anicteric. Mucous membranes of the mouth are moist. Neck supple. No JVD or thyromegaly LUNGS: Respirations even and unlabored. Lungs essentially clear to auscultation bilaterally. HEART: Regular rate and rhythm. S1 and S2 heard. ABDOMEN: Soft. Nondistended. Nontender. EXTREMITIES: Normal range of motion. No clubbing or cyanosis. Peripheral pulses intact. No lower extremity edema NEUROLOGIC: Awake and alert. Oriented x 3. ASSESSMENT: Chest pain, troponin negative x 3 Nausea, vomiting, diarrhea Decreased oral intake, x 2 weeks Coronary artery disease with previous stenting of the LAD and OM1 with recent balloon angioplasty of the diagonal and mid LAD, 05/14/2023 Hypertension Hyperlipidemia Daily alcohol use PLAN: An acute coronary but has been ruled out Continue dual antiplatelet therapy with aspirin and Effient Obtain 2D echo to assess cardiac structure and function Ideally would recommend initiation of Ranexa. However we will hold off at this time secondary to minimally elevated LFTs and complains of GI symptoms such as nausea, vomiting, and diarrhea Will increase Imdur to 90 mg daily Recommend GI evaluation Abstinence from alcohol recommended Further recommendations pending patient course Nurse practitioner note has been reviewed by physician. Signing provider agrees with the documented findings, assessment, and plan of care documented by NIGHT CUSTODIAN as a scribe. Past Medical History Past Medical History: Chest Pain / Angina, Hyperlipidemia, Hypertension, Sleep Apnea/CPAP/BIPAP Additional Past Medical History / Comment(s): cpap, this procedure was rescheduled History of Any Multi-Drug Resistant Organisms: None Reported Past Surgical History: Appendectomy, Heart Catheterization With Stent, Joint Replacement Additional Past Surgical History / Comment(s): stent to LAD 10/04 2019 coloplast prosthetic female implant, knee surg. x3 Past Anesthesia/Blood Transfusion Reactions: No Reported Reaction Date of Last Stent Placement:: 10/02/22 Past Psychological History: No Psychological Hx Reported Smoking Status: Never smoker Past Alcohol Use History: Occasional Past Drug Use History: Marijuana - Past Family History Father Family Medical History: Chest Pain / Angina, Coronary Artery Disease (CAD), Myocardial Infarction ([place]) Mother Family Medical History: No Reported History Medications and Allergies Home Medications Medication Instructions Recorded Confirmed Type Pramipexole [Mirapex] 0.25 mg PO HS 10/02/22 07/09/23 History Atorvastatin [Lipitor] 80 mg PO HS #90 tab 10/03/22 07/09/23 Rx Prasugrel [Effient] 10 mg PO DAILY #90 tab 10/03/22 07/09/23 Rx Metoprolol Tartrate [Lopressor] 50 mg PO BID #60 tab 10/07/22 07/09/23 Rx Aspirin 81 mg PO DAILY 02/05/23 07/09/23 History Cholecalciferol [Vitamin D3 (125 125 mcg PO DAILY 05/02/23 07/09/23 History Mcg = 5000 Iu)] Potassium Gluconate 99 mg PO DAILY 05/02/23 07/09/23 History hydrOXYzine HCL 20 mg PO HS 05/02/23 07/09/23 History Isosorbide Mononitrate ER [Imdur] 60 mg PO DAILY 07/09/23 07/09/23 History Allergies Allergy/AdvReac Type Severity Reaction Status Date / Time No Known Allergies Allergy Verified 07/09/23 20:15 Physical Exam Vitals: Vital Signs Temp Pulse Resp BP Pulse Ox 07/10/23 06:38 64 16 101/65 93 L 07/10/23 05:49 67 16 94 L 07/10/23 05:12 64 16 107/93 07/10/23 02:23 59 L 16 97/54 96 07/10/23 00:51 67 16 120/80 98 07/09/23 22:28 75 16 102/77 96 07/09/23 21:00 77 16 105/72 95 07/09/23 20:14 78 16 126/91 94 L 07/09/23 17:37 98.2 F 82 18 152/91 98 Intake and Output 07/09/23 07/10/23 07/10/23 22:59 06:59 14:59 Other: Weight 95.254 kg Results 07/09/23 17:59 07/10/23 09:33 Cardiac Enzymes 07/09/23 07/09/23 07/10/23 Range/Units 17:59 17:59 01:07 AST 75 H (17-59) U/L Troponin I <0.012 <0.012 (0.000-0.034) ng/mL 24 07/10/23 Range/Units 03:48 03:48 AST 56 (17-59) U/L Troponin I <0.012 (0.000-0.034) ng/mL Coagulation 07/09/23 Range/Units 17:59 PT 12.4 (10.0-12.5) sec APTT 25.9 (22.0-30.0) sec CBC 07/09/23 Range/Units 17:59 WBC 6.7 (3.8-10.6) k/uL RBC 4.65 (4.30-5.90) m/uL Hgb 15.5 (13.0-17.5) gm/dL Hct 44.6 (39.0-53.0) % Plt Count 224 (150-450) k/uL Comprehensive Metabolic Panel 07/09/23 07/10/23 Range/Units 17:59 03:48 Sodium 139 137 (137-145) mmol/L Potassium 3.6 3.2 L (3.5-5.1) mmol/L Chloride 105 107 (98-107) mmol/L Carbon Dioxide 23 23 (22-30) mmol/L BUN 12 12 (9-20) mg/dL Creatinine 0.84 0.75 (0.66-1.25) mg/dL Glucose 117 H 102 H (74-99) mg/dL Calcium 8.6 6.3 L* (8.4-10.2) mg/dL AST 75 H 56 (17-59) U/L ALT 99 H 80 H (4-49) U/L Alkaline Phosphatase 71 67 (38-126) U/L Total Protein 6.6 5.8 L (6.3-8.2) g/dL Albumin 4.4 3.6 (3.5-5.0) g/dL Current Medications Generic Name Dose Route Start Last Admin Trade Name Freq PRN Reason Stop Dose Admin Aspirin 81 mg 07/10/23 09:00 Aspirin 81 Mg PO DAILY [facility] Atorvastatin Calcium 80 mg 07/09/23 23:00 07/09/23 23:17 Atorvastatin 80 Mg Tab PO 80 mg HS HAYLIE Administration Cholecalciferol 125 mcg 07/10/23 09:00 Cholecalciferol 125 Mcg (5000 Iu) Tablet PO DAILY [facility] Enoxaparin Sodium 40 mg 07/10/23 09:00 Enoxaparin 40 Mg/0.4 Ml Syringe SQ DAILY [facility] Hydroxyzine HCl 20 mg 07/09/23 23:00 07/09/23 23:17 Hydroxyzine Hcl 10 Mg Tab PO 20 mg HS HAYLIE Administration Isosorbide Mononitrate 60 mg 07/10/23 09:00 Isosorbide Mononitrate Er 60 Mg Tab.Er.24h PO DAILY [facility] Metoprolol Tartrate 50 mg 07/09/23 22:45 07/09/23 23:17 Metoprolol Tartrate 50 Mg Tab PO 50 mg BID HAYLIE Administration Nitroglycerin 0.4 mg 07/09/23 22:38 Nitroglycerin Sl Tabs 0.4 Mg Tab SUBLINGUAL Q5M PRN Chest Pain Pramipexole Dihydrochloride 0.25 mg 07/09/23 23:00 07/09/23 23:17 Pramipexole 0.25 Mg Tab PO 0.25 mg HS [facility] Administration Prasugrel 10 mg 07/10/23 09:00 Prasugrel 10 Mg Tab PO DAILY [facility] Intake and Output 07/09/23 07/10/23 07/10/23 22:59 06:59 14:59 Other: Weight 95.254 kg 07/09/23 17:59 07/10/23 03:48
[2023-07-10] MEDS: METOCLOPRAMIDE 5 MG/ML 2 ML VIAL IVP SCH (11:16)
[2023-07-11 07:49] VITALS: BP 101/70; PULSE 58; RESP 15; TEMP 98.2
--- NOTE | 2023-07-11 09:59 | P.PN ---
Subjective HISTORY OF PRESENT ILLNESS: This is a 63-year-old male with a past medical history significant for hypertension, hyperlipidemia, coronary artery disease, and daily alcohol use. Patient follows in the office with Dr. Ortiz. We have been asked to see the patient in consultation for chest pain. Patient examined at the bedside in the emergency room. Patient underwent cardiac catheterization on 05/14/[address] Ortiz with balloon angioplasty of diagonal branch and mid LAD. The patient was seen in the office post procedure and continued to have some residual chest discomfort. His Imdur was increased from 30 mg to 60 mg daily. The patient s tates after his Imdur was increased he was feeling better for a while but now his chest pain has started to recur. He states over the past few weeks he has been having chest discomfort. He states it is usually on the left side of his chest however this morning it is on the right side of his chest. He states the pain is usually worse with exertion. He also reports a decreased appetite for the past 2 weeks. He reports nausea with daily episodes of vomiting. He also reports having episodes of diarrhea. Patient also reports daily alcohol use and drinks 1-2 drinks daily of either beer or wine. He is a non-smoker. DIAGNOSTICS: - EKG reveals sinus mechanism with nonspecific ST-T wave changes. - Chest xray minimal pulmonary vascular congestion. Otherwise no acute cardiopulmonary abnormality noted.. - Laboratory data: WBC 6.7. Hemoglobin 15.5. Platelet count 224. Sodium 138. Potassium 3.7. BUN 10. Creatinine 0.81. Troponin negative x 3. - Current home cardiac medications include metoprolol tartrate 50 mg twice a day, aspirin 81 mg daily, Effient 10 mg daily, Imdur 60 mg daily, and atorvastatin 80 mg at night. - Most recent echocardiogram obtained in September 2022 revealing ejection fraction 55 to 60%, mild MR - Cardiac catheterization history: 05/14/[address] Ortiz with balloon angioplasty of diagonal branch and mid LAD. 07/11/2023 Patient examined this morning at the bedside. Patient states he is feeling significantly better today. He denies any chest pain or pressure. He denies any shortness of breath. Vital signs are stable. PHYSICAL EXAM: VITAL SIGNS: Reviewed. GENERAL: Well-developed in no acute distress. HEENT: Head is normocephalic. Pupils are equal, round. Sclerae anicteric. Mucous membranes of the mouth are moist. Neck supple. No JVD or thyromegaly LUNGS: Respirations even and unlabored. Lungs essentially clear to auscultation bilaterally. HEART: Regular rate and rhythm. S1 and S2 heard. ABDOMEN: Soft. Nondistended. Nontender. EXTREMITIES: Normal range of motion. No clubbing or cyanosis. Peripheral pulses intact. No lower extremity edema NEUROLOGIC: Awake and alert. Oriented x 3. ASSESSMENT: Chest pain, troponin negative x 3 Nausea, vomiting, diarrhea Decreased oral intake, x 2 weeks Coronary artery disease with previous stenting of the LAD and OM1 with recent balloon angioplasty of the diagonal and mid LAD, 05/14/2023 Hypertension Hyperlipidemia Daily alcohol use PLAN: Continue dual antiplatelet therapy with aspirin and Effient Continue additional cardiac medications Abstinence from alcohol recommended Recommend outpatient GI workup Recommend patient to be discharged home on Reglan and Protonix Patient is stable for discharge home today from a cardiac standpoint We will sign off. Please reconsult if needed. Nurse practitioner note has been reviewed by physician. Signing provider agrees with the documented findings, assessment, and plan of care documented by MANAGER SHIP as a scribe. Objective - Vital Signs Vital signs: Vital Signs Temp 98.2 F 07/11/23 07:00 Pulse 58 L 07/11/23 07:00 Resp 15 07/11/23 07:00 BP 101/70 07/11/23 07:00 Pulse Ox 97 07/11/23 07:00 FiO2 21 07/11/23 00:38 Intake & Output 07/10/23 07/11/23 07/11/23 18:59 06:59 18:59 Weight 95.254 kg Other: Voiding Method Toilet # Voids 1 2 - Labs CBC & Chem 7: 07/09/23 17:59 07/10/23 09:33 Labs: Abnormal Lab Results - Last 24 Hours (Table) 07/10/23 Range/Units 09:33 Glucose 126 H (74-99) mg/dL AST 63 H (17-59) U/L ALT 83 H (4-49) U/L Total Protein 6.0 L (6.3-8.2) g/dL
[2023-07-11] MEDS: ISOSORBIDE MONONITRATE ER 30 MG TAB.ER.24H PO SCH (10:05)
--- NOTE | 2023-07-11 10:19 | CA ---
Transthoracic Echo Report Name: Lenard Levine Age: 63 Gender: M : 1960 Exam Date: 07/10/2023 15:02 Exam Location: [facility] Ht (in): 69 Wt (lb): 210 Ordering Physician: Mayte Green Attending/Referring Phys: [id number], Norma Safety Security Officer Fernanda Black RDCS Procedure CPT: Indications: LV function, CP Cardiac Hx: Technical Quality: Fair Contrast 1: Total Dose (mL): Contrast 2: Total Dose (mL): MEASUREMENTS (Male / Female) Normal Values 2D ECHO LV Diastolic Diameter PLAX 3.6 cm 4.2 - 5.9 / 3.9 - 5.3 cm LV Systolic Diameter PLAX 2.2 cm IVS Diastolic Thickness 1.7 cm 0.6 - 1.0 / 0.6 - 0.9 cm LVPW Diastolic Thickness 2.0 cm 0.6 - 1.0 / 0.6 - 0.9 cm LV Relative Wall Thickness 1.0 RV Internal Dim ED PLAX 3.7 cm LA Volume 35.6 cm??? 18 - 58 / 22 - 52 cm??? LA Volume Index 16.3 cm???/m??? 16 - 28 cm???/m??? M-MODE Aortic Root Diameter MM 3.5 cm LA Systolic Diameter MM 3.8 cm LA Ao Ratio MM 1.1 AV Cusp Separation MM 2.6 cm DOPPLER AV Peak Velocity 126.4 cm/s AV Peak Gradient 6.4 mmHg AV Mean Velocity 87.9 cm/s AV Mean Gradient 3.5 mmHg AV Velocity Time Integral 25.4 cm LVOT Peak Velocity 102.4 cm/s LVOT Peak Gradient 4.2 mmHg LVOT Velocity Time Integral 19.9 cm MV Area PHT 2.9 cm??? Mitral E Point Velocity 65.5 cm/s Mitral A Point Velocity 50.2 cm/s Mitral E to A Ratio 1.3 MV Deceleration Time 258.4 ms MV E' Velocity 6.2 cm/s Mitral E to MV E' Ratio 10.5 TR Peak Velocity 214.5 cm/s TR Peak Gradient 18.4 mmHg Right Ventricular Systolic Press 23.4 mmHg FINDINGS Left Ventricle Moderately increased left ventricular wall thickness. Left ventricular cavity size normal. Normal left ventricular systolic function with no obvious regional wall motion abnormalities. Left ventricular ejection fraction is estimated at 55-60 %. Right Ventricle Mild right ventricular dilatation. Right ventricular systolic pressure within normal limits. Right Atrium Normal right atrial size. Left Atrium Normal left atrial size. Mitral Valve Structurally normal mitral valve. Mild mitral regurgitation. Aortic Valve Trileaflet aortic valve. No aortic valve stenosis or regurgitation. Tricuspid Valve Structurally normal tricuspid valve. Mild tricuspid regurgitation. Pulmonic Valve Structurally normal pulmonic valve. Pericardium No pericardial effusion. Aorta Normal size aortic root and proximal ascending aorta. CONCLUSIONS Poor quality study Normal LV size and systolic function. LVEF 55% No obvious valvular abnormality Previewed by: Dr Brayan Darden (Electronically Signed) Final Date: 11 July 2023 10:18
--- NOTE | 2023-07-11 16:10 | P.DS ---
Providers Date of admission: 07/09/23 22:40 Expected date of discharge: 07/11/23 Attending physician: Chevy Stone MD Primary care physician: Zak Carter [facility] Course: Discharge Diagnosis: Chest pain, acute coronary event ruled out. Gastroesophageal reflux. Patient discharged home on Protonix 40 mg daily and Reglan 10 mg daily with meals and at bedtime. Patient encouraged to follow-up outpatient with children's minister for EGD. Intractable nausea, resolved Transaminitis, improved. Initially total bili 1.4, AST 75, and ALT of 99 upon discharge total bili 1.2, AST of 63, and ALT of 83. History of CAD status post stenting Hypertension Hyperlipidemia Obstructive sleep apnea Hospital course: Patient is a very pleasant 63-year-old male with a past medical history of CAD status post stenting, hypertension, hyperlipidemia, and obstructive sleep apnea. He presented to the emergency department on 07/09/2023 with a chief complaint of chest pain. Upon arrival to the emergency department, patient underwent evaluation. Vital signs upon arrival show blood pressure 152/91, heart rate 82, respiratory rate 18, temp 98.2 F, and SpO2 of 98% on room air. EKG completed showing normal sinus rhythm at 79 bpm. Chest x-ray completed revealing mild pulmonary vascular congestion otherwise negative for acute cardiopulmonary process. Abdominal ultrasound completed showing echogenic liver suggestive of diffuse liver disease, likely steatosis versus artifact on the basis of body habitus. Labs were completed and reviewed. CBC unremarkable. Coagulation profile showing elevated INR of 1.2. BMP unremarkable. Blood glucose 117. Liver profile showing transaminitis with elevated total bili of 1.4, AST of 75, and ALT of 99 with alkaline phosphatase of 71. Troponin was negative at less than 0.012. Amylase and lipase normal findings. Patient admitted under services with consultation to cardiology. Troponins trended overnight all negative at less than 0.012 x 3 draws. Patient was given a GI cocktail and started on Protonix and Reglan. He had full resolution of chest pain and nausea. Patient cleared from cardiac perspective for discharge. Recommending outpatient follow-up in their office in 1 to 2 weeks. Prescription sent for Protonix 40 mg daily and Reglan 10 mg daily with meals and at bedtime. Discussed with patient recommendations for outpatient follow-up with children's minister to schedule an appointment to further discuss possibility of outpatient EGD. Physical exam: Vital signs reviewed and stable. General: Nontoxic, no distress and appears stated age. Derm: Skin warm and dry, normal coloration for ethnicity. Head: Atraumatic, normocephalic and symmetric. Eyes: EOMs intact, no lid lag, and anicteric sclera Mouth: no lip lesions, mucus membranes moist Cardiovascular: regular rate and rhythm with normal S1S2, no murmur, positive posterior tibial pulses bilaterally, and cap refill < 2 seconds. Lungs: Respirations even, regular, and unlabored on room air. Lungs CTA bilaterally, no rhonchi, no rales, no wheezing, and no accessory muscle usage. Abdominal: soft, nontender to palpation, no guarding, no appreciable organomegaly Ext: ROM intact. No gross muscle atrophy, no edema, no contractures Neuro: Speech clear, face symmetrical and CN II-XII grossly intact with no noted focal neuro deficits Psych: Alert and oriented to person, place, time, and situation. Appropriate and pleasant affect. A total of 34 minutes of time were spent preparing this complex discharge summary. Pt was discharged on 07/11/2023 at 11:21 AM. Patient was seen independently by Nurse Practitioner. This document was prepared using [employer] dictation software. Please allow for errors in tax form preparer while rare they do occur. De Fitzpatrick NP rendered care for this patient independently, reviewed the findings and plan as documented in the note above. I did not physically speak with or examine the patient on this date. Patient Condition at Discharge: Stable Plan - Discharge Summary Discharge Rx Participant: Yes New Discharge Prescriptions: New Pantoprazole [Protonix] 40 mg PO AC-BRKFST 60 Days #60 tab Metoclopramide [Reglan] 10 mg PO ACHS 30 Days #120 tab Continue Prasugrel [Effient] 10 mg PO DAILY #90 tab Metoprolol Tartrate [Lopressor] 50 mg PO BID #60 tab hydrOXYzine HCL 20 mg PO HS Pramipexole [Mirapex] 0.25 mg PO HS Atorvastatin [Lipitor] 80 mg PO HS #90 tab Aspirin 81 mg PO DAILY Potassium Gluconate 99 mg PO DAILY Cholecalciferol [Vitamin D3 (125 Mcg = 5000 Iu)] 125 mcg PO DAILY Isosorbide Mononitrate ER [Imdur] 60 mg PO DAILY Discharge Medication List Pramipexole [Mirapex] 0.25 mg PO HS 10/02/22 [History] Atorvastatin [Lipitor] 80 mg PO HS #90 tab 10/03/22 [Rx] Prasugrel [Effient] 10 mg PO DAILY #90 tab 10/03/22 [Rx] Metoprolol Tartrate [Lopressor] 50 mg PO BID #60 tab 10/07/22 [Rx] Aspirin 81 mg PO DAILY 02/05/23 [History] Cholecalciferol [Vitamin D3 (125 Mcg = 5000 Iu)] 125 mcg PO DAILY 05/02/23 [History] Potassium Gluconate 99 mg PO DAILY 05/02/23 [History] hydrOXYzine HCL 20 mg PO HS 05/02/23 [History] Isosorbide Mononitrate ER [Imdur] 60 mg PO DAILY 07/09/23 [History] Metoclopramide [Reglan] 10 mg PO ACHS 30 Days #120 tab 07/11/23 [Rx] Pantoprazole [Protonix] 40 mg PO AC-BRKFST 60 Days #60 tab 07/11/23 [Rx] Follow up Appointment(s)/Referral(s): Elfego Ortiz MD [STAFF PHYSICIAN] - 1 Week (Office will call with appointment time and date) Zak Carter DO [Primary Care Provider] - 1-2 days Miriam Feliz MD [STAFF PHYSICIAN] - 2 Weeks (follow up with children's minister and discuss recommended outpatient EGD) Patient Instructions/Handouts: Chest Pain (ED) Activity/Diet/Wound Care/Special Instructions: Activity: As tolerated. Take breaks as needed. Diet: Heart healthy and carb consistent diet. Avoid salts, or foods with hidden salts such as canned or boxed foods and frozen dinners. Extra salt makes your heart work harder and traps the fluid in your body for longer. Special Instructions: Take all of your medications as directed and remember to keep all of your doctor's appointments and follow-up as needed. Thank you for allowing us to participate in your care, it was truly a pleasure h aving you for our patient!!! Discharge Disposition: HOME SELF-CARE
== END 2023-07-11 14:42 | disposition home or self-care (01) | DRG 243 ==
LOC: EC 17:36 → 6NMEDSUR 22:39 → OBSVTOIN 22:40 → 6NMEDSUR 07-10 06:34
PROVIDERS: ADMIT Internal Medicine; ATTEND Internal Medicine
DX: K21.9 Gastro-esophageal reflux disease without esophagitis (principal); G47.33 Obstructive sleep apnea (adult) (pediatric); E78.5 Hyperlipidemia, unspecified; I10 Essential (primary) hypertension; R74.01 Elevation of levels of liver transaminase levels; I25.110 Atherosclerotic heart disease of native coronary artery with unstable angina pectoris; K76.0 Fatty (change of) liver, not elsewhere classified; R79.1 Abnormal coagulation profile; Z79.02 Long term (current) use of antithrombotics/antiplatelets; Z79.82 Long term (current) use of aspirin; Z79.899 Other long term (current) drug therapy; Z82.49 Family history of ischemic heart disease and other diseases of the circulatory system; Z95.5 Presence of coronary angioplasty implant and graft; I34.0 Nonrheumatic mitral (valve) insufficiency
CPT/HCPCS: 36415; 71046; 76705; 80053; 80061; 82150; 83690; 83735; 84484; 85025; 85610; 85730; 93005; 93306; 94660; 96372; 96374; 99285

== ENCOUNTER 2023-11-18 10:00 | Day surgery (SDC) | payer OTHER ==
[2023-11-14 12:27] VITALS: BMI 32.5
[~2023-11-18 10:00] MED LIST changes: -ALPRAZolam 0.25 MG TAB PO PRN; -ALPRAZolam 0.5 MG TAB PO PRN; -ASPIRIN 325 MG TAB PO ONE; -ATORVASTATIN 80 MG TAB PO ONE; +LACTATED RINGERS 1,000 ML BAG ONE; -NITROGLYCERIN SL TABS 0.4 MG TAB SUBLINGUAL PRN
[2023-11-18] MEDS ORDERED: PROPOFOL 10 MG/ML 20 ML VIAL IV ONE (10:33)
[2023-11-18] MEDS ORDERED: LIDOCAINE 2% (PF) 20 MG/ML 5 ML VIAL ONE (10:33)
--- NOTE | 2023-12-10 13:03 | P.PCN ---
Date of Procedure: 11/18/23 Procedure(s) Performed: This an addendum to the procedure was performed on 11/18/2023. Procedure performed EGD Procedure Olympus-GIF 180 videoscope was inside mouth esophagus intubated without any difficulty and was gradually Barrett all the way into the stomach and duodenum and carefully examined.
== END 2023-11-18 11:41 ==
LOC: ORWHC2ENDO 10:00
PROVIDERS: ATTEND Internal Medicine Gastroenterology
DX: R11.2 Nausea with vomiting, unspecified (principal); I25.2 Old myocardial infarction; I25.10 Atherosclerotic heart disease of native coronary artery without angina pectoris; E78.5 Hyperlipidemia, unspecified; I10 Essential (primary) hypertension; Z79.82 Long term (current) use of aspirin; Z79.899 Other long term (current) drug therapy
CPT/HCPCS: 43235

== ENCOUNTER 2024-07-02 10:35 | Day surgery (SDC) | payer OTHER ==
[~2024-07-02 10:35] MED LIST changes: +ALPRAZolam 0.25 MG TAB PO PRN; +ALPRAZolam 0.5 MG TAB PO PRN; -LACTATED RINGERS 1,000 ML BAG ONE; +NITROGLYCERIN SL TABS 0.4 MG TAB SUBLINGUAL PRN
[2024-07-02 11:05] LABS: Glucose,Whole Blood 99 mg/dL (70-110)
[2024-07-02 11:05] LABS: Basophils % (A) 0 %; Eosinophils # (A) 0.2 k/uL (0-0.7); Eosinophils % (A) 3 %; HCT 42.5 % (39.0-53.0); HGB 14.8 gm/dL (13.0-17.5); Lymphocytes # (A) 1.6 k/uL (1.0-4.8); Lymphocytes % (A) 28 %; MCH 32.8 pg (25.0-35.0); MCHC 34.9 g/dL (31.0-37.0); Mean Platelet Volume 7.9; Monocytes # (A) 0.4 k/uL (0-1.0); Monocytes % (A) 7 %; Neutrophils # (A) 3.5 k/uL (1.3-7.7); Neutrophils % (A) 60 %; Platelet Count 204 k/uL (150-450); RBC 4.52 m/uL (4.30-5.90); RDW 13.2 % (11.5-15.5); WBC 5.8 k/uL (3.8-10.6)
[2024-07-02 11:10] VITALS: RESP 16; TEMP 97.8
[2024-07-02] MEDS: SODIUM CHLORIDE 0.9% 1,000 ML in EMPTY BAG 1 BAG IV SCH (11:12)
[2024-07-02] MEDS: ASPIRIN 325 MG TAB PO STA (11:12)
[2024-07-02] MEDS: IV FLUID CONTINUATION 1,000 ML IV ONE (11:13)
[2024-07-02 11:23] LABS: African American GFR (CKD) >90 (>60 ml/min/1.73 sqM); Anion Gap 9 mmol/L; Blood Urea Nitrogen 10 mg/dL (9-20); Calcium 8.9 mg/dL (8.4-10.2); Carbon Dioxide 25 mmol/L (22-30); Chloride 105 mmol/L (98-107); Glucose 99 mg/dL (74-99); Non-African American GFR(CKD) >90 (>60 ml/min/1.73 sqM); Potassium 3.8 mmol/L (3.5-5.1); Sodium 139 mmol/L (137-145)
[2024-07-02] MEDS: HEPARIN SODIUM,PORCINE (1 ML) 2,500 UNIT in SODIUM CHLORIDE 0.9% 250 ML IRRIGATION PRN (13:12)
[2024-07-02] MEDS: HEPARIN SODIUM,PORCINE 10,000 UNIT in SODIUM CHLORIDE 0.9% 1,000 ML IRRIGATION PRN (13:12)
[2024-07-02] MEDS: LIDOCAINE 1% INJ 10MG/ML (20 ML MDV) SQ ONE (13:24)
[2024-07-02] MEDS: VERAPAMIL SYRINGE (5 MG/10 ML) INTRAARTER ONE (13:25)
[2024-07-02] MEDS: MIDAZOLAM 2 MG/2 ML VIAL IVP ONE (13:25)
[2024-07-02] MEDS: HEPARIN SODIUM 1,000 UN/ML (10ML VL) IVP ONE (13:28)
[2024-07-02] MEDS: IOPAMIDOL-300 100ML BTL INJ ONE (13:41)
[2024-07-02] MEDS ORDERED: RX INFO: IV CONTRAST WAS GIVEN 1 EACH MISC MISCELLANE PRN (13:49)
--- NOTE | 2024-07-02 13:52 | P.PCN ---
Date of Procedure: 07/02/24 Operative Findings: CARDIAC CATHETERIZATION PERFORMING PHYSICIAN: Elfego Ortiz MD, RPVI PROCEDURE PERFORMED: 1. Selective right and left coronary angiogram 2. Left heart catheterization and IFR of the RCA 3. Ultrasound-guided access of the right radial artery INDICATION: Symptomatic 62-year-old gentleman with abnormal stress test COMPLICATION: None APPROACH: Right radial artery LEVEL OF SEDATION: Moderate with a sedation length of 18 minutes PROCEDURE DESCRIPTION: After obtaining an informed consent, the patient was brought to cardiac laborer [facility] house. Local anesthesia was performed using lidocaine subcutaneously. The right radial artery was cannulated using Seldinger technique, under ultrasound guidance, the guidewire passed easily, following that we advanced a 5-Faroese sheath dilator assembly, the wire and dilator were removed and sheath was flushed. Following that, 2 mg of verapamil along with 5000 unit heparin were given. Selective right and left coronary angiogram using a 5-Faroese JR4 and JL 3.5 catheters. Following that we did left heart catheterization using 5-Faroese pigtail catheter. After that I decided to do an IFR of the RCA with after zeroing Dobler wire and equalizing between the Dobler wire and guiding catheter which was JL 3.5 guiding catheter the RCA was engaged and subsequently the PLV branch was wired with IFR came to be at 1.0. The procedure was completed with no complication The procedure was completed there was no complication. SELECTIVE CORONARY ANGIOGRAM: The right coronary artery: Large caliber vessel and a dominant vessel with intermediate disease involving the PLV branch appears to be nonflow limiting by Doppler wire Left main: Is angiographically normal The left circumflex: Large caliber vessel with no evidence of high-grade stenosis The left anterior descending artery: The LAD is stented in the proximal to midportion with patent stent and intermediate disease involving a diagonal branch jailed by the stent HEMODYNAMICS: The LVEDP was 16 mmHg with no significant gradient across aortic valve CONCLUSION: 1. Patent stent in the LAD/diagonal bifurcation 2. 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
[2024-07-02] MEDS ORDERED: SODIUM CHLORIDE 0.9% 1,000 ML IV SCH (14:00)
[2024-07-02 15:29] VITALS: PULSE 67
[2024-07-02 15:57] VITALS: BP 115/79
== END 2024-07-02 16:40 | disposition home or self-care (01) ==
LOC: CATHCVL 10:35
PROVIDERS: ATTEND Internal Medicine Interventional Cardiology
DX: I25.10 Atherosclerotic heart disease of native coronary artery without angina pectoris (principal); I10 Essential (primary) hypertension; E78.5 Hyperlipidemia, unspecified; F10.10 Alcohol abuse, uncomplicated; E66.3 Overweight; Z68.32 Body mass index [BMI] 32.0-32.9, adult; Z95.5 Presence of coronary angioplasty implant and graft; Z79.02 Long term (current) use of antithrombotics/antiplatelets; Z79.899 Other long term (current) drug therapy
CPT/HCPCS: 93458; 93799; 80048; 85025; 99152; C1887; C1769 ×2; C1894; J2250; J1644 ×3; J2003; Q9967

== ENCOUNTER → 2024-09-02 | Outpatient (CLI) | payer OTHER ==
--- NOTE | 2024-09-02 15:06 | XR ---
EXAMINATION TYPE: XR knee complete RT DATE OF EXAM: 09/02/2024 2:53 PM COMPARISON: None CLINICAL INDICATION: Male, 64 years old with history of M25.561 Pain rt knee; PHH, pain TECHNIQUE: 3 views FINDINGS: Mild degenerative spurring patellofemoral compartment. Extensor mechanism appears intact. Mild anteri or soft tissue swelling. Trace knee joint effusion. No acute fracture, subluxation, or dislocation se en. IMPRESSION: Mild anterior soft tissue swelling. Trace knee joint effusion. No acute osseous abnormality seen. [facility], Workstation: [facility], 09/02/2024 3:04 PM
== END | disposition home or self-care (01) ==
LOC: RADXRMAIN 14:31
PROVIDERS: ATTEND Internal Medicine Geriatric Medicine
DX: M25.461 Effusion, right knee (principal)